=== PATIENT | female | born 1935 | race Caucasian/White ===

== ENCOUNTER 2019-04-21 14:59 | Inpatient (IN) | payer OTHER ==
--- NOTE | 2019-04-21 16:08 | PDOC ---
History of Present Illness - General Chief Complaint: Weakness Stated Complaint: WEAKNESS History Source: Patient, Family, Business And Financial Counsel Used Exam Limitations: Language Barrier (Telugu) - History of Present Illness Initial Comments: 04/21/19 16:08 Melany Light is an 83F with PMH CAD s/p CABG and IDDM presenting with weakness and PNA. Patient presents with daughter at bedside. Per daughter, was feeling weak for the last few days, went PMD a few days ago and was diagnosed with PNA vs CHF, sent home on amoxicillin, was started on Lasix for lower extremity edema. Patient lives alone at home. Today no one could contact her over the phone. Per patient, woke up at 7:30AM, but was then too weak to stand, slid down to floor. Daughter found her at noon unconscious on the floor. Patient denies any injury or head struck, denies chest pain/SOB/palpitations. Has not had a fever or chills, but has had a cough and diarrhea, poor PO intake , nausea, dizziness, has not been able to take 20U QHS insulin properly. No urinary symptoms. Past History - Past Medical History Allergies/Adverse Reactions: Allergies Allergy/AdvReac Type Severity Reaction Status Date / Time No Known Allergies Allergy Verified 04/21/19 15:25 COPD: No Diabetes: Yes HTN: Yes - Surgical History Cardiac Surgery: Yes (bypass) - Psycho Social/Smoking Cessation Hx Smoking History: Never smoked Hx Alcohol Use: No Review of Systems - Review of Systems Able to Perform ROS?: Yes Constitutional: Yes: Weakness. No: Chills, Fever HEENTM: No: Symptoms Reported Respiratory: Yes: Cough. No: Shortness of Breath, Wheezing Cardiac (ROS): Yes: Edema. No: Chest Pain, Palpitations, Syncope ABD/GI: Yes: Diarrhea, Nausea, Poor Appetite, Poor Fluid Intake. No: Constipated, Vomiting : No: Symptoms Reported Musculoskeletal: No: Symptoms Reported Integumentary: Yes: Symptoms Reported Neurological: Yes: Weakness, Unsteady Gait, Dizziness. No: Numbness, Paresthesia Endocrine: No: Symptoms Reported Hematologic/Lymphatic: No: Symptoms Reported All Other Systems: Reviewed and Negative *Physical Exam - Vital Signs Last Vital Signs Temp Pulse Resp BP Pulse Ox 97.7 F 111 H 18 142/93 88 L 04/21/19 15:00 04/21/19 15:00 04/21/19 15:00 04/21/19 15:00 04/21/19 15:00 - Physical Exam General Appearance: Yes: Nourished, Appropriately Dressed. No: Apparent Distress HEENT: positive: EOMI, MARCELLO, Normal Voice, Pharynx Normal (dry mouth), Hearing Grossly Normal. negative: Scleral Icterus (R), Scleral Icterus (L) Neck: positive: Trachea midline, Normal Thyroid, Supple. negative: Tender, Lymphadenopathy (R), Lymphadenopathy (L), Tender lateral, Tender midline Respiratory/Chest: positive: Lungs Clear, Normal Breath Sounds, Other (healed CABG scar, nontender). negative: Chest Tender, Respiratory Distress, Accessory Muscle Use, Crackles, Rales, Rhonchi, Stridor, Wheezing Cardiovascular: positive: Regular Rhythm, Regular Rate. negative: Murmur Gastrointestinal/Abdominal: positive: Normal Bowel Sounds, Soft. negative: Tender (complaining of generalized abd pain but nontender, negative Javier's), Organomegaly, Pulsatile Mass, Distended, Guarding, Hernia Musculoskeletal: positive: Normal Inspection. negative: CVA Tenderness, Vertebral Tenderness Extremity: positive: Normal Capillary Refill, Normal Inspection, Normal Range of Motion, Pelvis Stable, Pedal Edema (1+), Other (no sensory deficits, 5/5 motor strength, DP strong). negative: Tender, Calf Tenderness Integumentary: positive: Normal Color, Dry, Warm, Clammy Neurologic: positive: Fully Oriented, Alert, Normal Mood/Affect, Normal Response , Motor Strength 5/5. negative: Numbness, Sensory Deficit ED Treatment Course - LABORATORY CBC & Chemistry Diagram: 04/21/19 16:25 04/21/19 16:25 - ADDITIONAL ORDERS Additional order review: Laboratory Results 04/21/19 15:26 POC Glucometer 217 04/21/19 15:26 POC Glucometer 217 Medical Decision Making - Medical Decision Making 04/21/19 17:06 Patient is an 83F who lives alone and was found unconscious due to weakness, recently diagnosed with PNA, has history CABG and IDDM and has not been taking insulin. Afebrile, no crackles on exam, no chest pain reported. Concern for worsening PNA/sepsis, UTI, electrolyte abnormality, cardiac etiology of syncope/weakness. Sepsis labs ordered, including CMP/CBC/lactate/ coags/VBG/BNP, ordering CXR to evaluate for worsening PNA, ECG for evaluation of ACS, UA/UC for UTI eval. CT head considered but patient is mentating normally , speaking without issues, A/Ox3 with no reported head injury. 04/21/19 18:[address] Alves at [facility] (#[phone]), spoke to covering physician Dr. Chery. Electric Meter Tester is Dr. Sam at [facility]. History of posterior ID, BNP 22453 , last Echo Mar 2019 shows EF 26% with LV dilatation and PHTN. On Baseger 10U BID, metformin 500mg BID, atorvastatin 20mg, glipizide 10mg, Synthroid 88mcg, nifedipine ER 90mg. Diagnosed with CHF vs. PNA, sent home on amoxicillin empirically. Labs notable for: - WBC WNL, no evidence of systemic infection or PNA - Na/K WNL - BUN 19.8 - Cr 0.9 - BNP 87656, consistent with CHF, ordering 20mg IV Lasix for diuresis - trop 0.13 - VBG WNL ECG shows sinus tachycardia with LBBB, HR 108, QRS 168, QTC 554, no prior ECG for comparison, no chest pain at this time. CXR appears with bilateral pulmonary edema and effusions. Patient needs admission for CHF exacerbation and diuresis, is unable to stand or walk at this time, unsafe discharge home with home diuretics. No electrolyte abnormalities needing correction. Low suspicion for PNA at this time, no ABx given. 04/21/19 19:23 Spoke to admitting team, good for admission under Dr. Denney. Will add on CK for eval prolonged down time and CT head for syncope. Discharge - Discharge Information Problems reviewed: Yes Clinical Impression/Diagnosis: CHF exacerbation Qualifiers: Heart failure type: unspecified Qualified Code(s): I50.9 - Heart failure, unspecified Condition: Stable - Admission Yes - Follow up/Referral - Patient Discharge Instructions - Post Discharge Activity
[2019-04-21] MEDS ORDERED: SODIUM CHLORIDE 1,660 ML IV ONE (16:35)
[2019-04-21 16:56] LABS: BASO % 0.8 % (0-2.0); HEMATOCRIT 34.3 % (32.4-45.2); LYMPH % 10.1 % (8-40); MCH 25.3 pg (25.7-33.7); MCHC 32.1 g/dl (32.0-36.0); MEAN CELL VOLUME 78.9 fl (80-96); MEAN PLT VOLUME 8.9 fl (7.5-11.1); MONO % 5.2 % (3.8-10.2); NEUT % 83.9 % (42.8-82.8); PLATELET COUNT 222 K/MM3 (134-434); RBC 4.35 M/mm3 (3.60-5.2); RDW 15.8 % (11.6-15.6); WHITE BLOOD COUNT 7.8 K/mm3 (4.0-10.0)
[2019-04-21 17:07] LABS: VENOUS PC02 45.8 mmHg (38-52); VENOUS PH 7.38 (7.31-7.41)
[2019-04-21 17:08] LABS: VENOUS PO2 < 49 mmHg (28-48)
[2019-04-21 17:13] LABS: INR 1.09 (0.83-1.09); PROTHROMBIN TIME (PATIENT) 12.9 SEC (9.7-13.0)
[2019-04-21 17:15] LABS: ACTIVATED PTT 32.5 SECONDS (25.2-36.5)
[2019-04-21 17:31] LABS: N-TERMINAL BNP 18966.5 pg/ml (5-450)
--- NOTE | 2019-04-21 17:37 | PDOC ---
Documentation entered by Adrien Bower SCRIBE, acting as scribe for Tess Bautista MD. Tess Bautista MD: This documentation has been prepared by the johnibeSathish Daniel, SCRIBE, under my direction and personally reviewed by me in its entirety. I confirm that the documentation accurately reflects all work, treatment, procedures, and medical decision making performed by me. Attending Attestation - Resident Resident Name: Monroe Jones - ED Attending Attestation I have performed the following: I have examined & evaluated the patient, The case was reviewed & discussed with the resident, I agree w/resident's findings & plan, Exceptions are as noted - HPI HPI: 04/21/19 16:42 The patient is an 83 year old female with a past medical history of CAD s/p CABG and diabetes here today for evaluation of weakness. The patient reports that she felt weak this morning and slid out of bed to the floor and was unable to get up. She was found by her daughter. Patient also reports that she was diagnosed with pneumonia on on monday (04/14/2019) at an urgent care and was started on amoxicillin. Allergies: NKA PCP: Paul Alves - Physicial Exam PE: 04/21/19 17:27 alert 83 yo female with c/o thirst,positional dizziness, days of diarrhea and she slid onto the floor at home and was found down on the floor by family today 04/21/19 17:33 head ncat eyes joshua eomi Dry mucus membranes neck supple lungs no wheezing, no crackles cvs tachycardia abd no rebound, no guarding skin dry Extremities FROM, no deformities, no appreciable edema neuro alert,conversant,moving all extremities 04/21/19 18:27 - Medical Decision Making 04/21/19 17:35 83 yo female complaining of dizziness and thirst differential includes syncope vs vasovagel ,dehydration,ACS,TIA,gastroenteritis plan ekg,IVF,ct scan head,cbc,comp,trop,UA,UC 04/21/19 18:28 pt has no focal neuro deficits and can recall the incident of her sliding of the bed on to floor and then not able to get herself off the floor, motor strength 5/5 b/l 04/21/19 21:[address] Chery who was covering for Dr. Paul Alves [phone] and the patient's medications are Glargine 10 units in the morning, 35 units in the afternoon Metformin 500 twice daily Atorvastatin 20 mill milligrams at night glipizide 10 mg daily Synthroid 88 mEq Nifedipine 90 mg Lasix 20 mg daily 04/21/19 21:07 Her medical history significant for insulin-dependent diabetes, congestive heart failure Spoke with Dr. Chery she had a stress test and echo done March 2019 Her ejection fraction was only 26%, pulmonary hypertension, mild to moderate mitral regurg, tricuspid regurg, severely dilated LV and RV Her steam clean machine operator is Dr. Jose E Sam 04/21/19 21:10 04/21/19 21:10 Troponin equal to 0.13 and will be trended BNP is about 19,000. Her last known BNP was in the last month and it was 26, 670 according to her PCP admitted tp telemetry
[2019-04-21 17:49] LABS: ALBUMIN 3.5 g/dl (3.4-5.0); BILIRUBIN,TOTAL 0.7 mg/dL (0.2-1); BLOOD UREA NITROGEN 19.8 mg/dL (7-18); CALCIUM 8.8 mg/dL (8.5-10.1); CREATININE 0.9 mg/dL (0.55-1.3); POTASSIUM 3.5 mmol/L (3.5-5.1); TOT PROT 6.4 g/dl (6.4-8.2)
[2019-04-21] MEDS ORDERED: FUROSEMIDE 40 MG/4 ML INJECTABLE VIAL IVPUSH ONE (18:26)
[2019-04-21] MEDS ORDERED: FUROSEMIDE 40 MG/4 ML INJECTABLE VIAL ONE (18:50)
--- NOTE | 2019-04-21 19:43 | PN ---
Teaching Attending Note Name of Resident: Shahbaz Kign ATTENDING PHYSICIAN STATEMENT I saw and evaluated the patient. I reviewed the resident's note and discussed the case with the resident. I agree with the resident's findings and plan as documented. SUBJECTIVE: Patient is an 83 year old woman with a PMH of HFrEF, CAD s/p CABG and Insulin- treated DM presenting with weakness. Per daughter, she was feeling weak for the last few days, went PMD a few days ago and was diagnosed with PNA vs CHF, sent home on amoxicillin, was started on Lasix for lower extremity edema. Patient lives alone at home. Today no one could contact her over the phone. Per patient , woke up at 7:30AM, but was then too weak to stand and slid down to floor. Daughter found her at noon unconscious on the floor. Patient denies any injury or head struck, denies chest pain, SOB or palpitations. Has not had a fever or chills, but has had a cough and diarrhea, poor PO intake, nausea and dizziness. Has not been able to take 20U QHS insulin properly. No urinary symptoms. Denies alcohol, tobacco or illicit drug use. No sick contacts or recent travels. OBJECTIVE: Alert Vital Signs Period Temp Pulse Resp BP Sys/Patel Pulse Ox Last 24 Hr 97.7 F 107-111 18-18 127-142/87-93 88-98 HEENT: No Jaundice, eye redness or discharge, PERRLA, EOMI. Normocephalic, atraumatic. External ears are normal and hearing is grossly intact. No nasal discharge. Neck: Supple, nontender. No palpable adenopathy or thyromegaly. No JVD Chest: Good effort. Bibasilar Clear to auscultation and percussion. Heart: Tachycardia. No S3, rub or murmur Abdomen: Not distended, soft, nontender and no HSM. No rebound or guarding. Normal bowel sounds. Ext: Peripheral pulses intact. Leg edema. Skin: Warm and dry. No petechiae, rash or ecchymosis. Neuro: Alert. Oriented x3. CN 2-12 grossly intact. Sensation grossly intact in all four extremities and DTR are symmetric. Psych: Appropriate mood and affect. Good insight. Current Medications Generic Name Dose Route Start Last Admin Trade Name Freq PRN Reason Stop Dose Admin Enoxaparin Sodium 40 mg 04/22/19 10:00 Lovenox - SQ DAILY ANTHONY Insulin Aspart 1 vial 04/21/19 22:00 Novolog Vial Sliding Scale - SQ ACHS [facility] Protocol Abnormal Lab Results 04/21/19 04/21/19 04/21/19 16:25 16:25 16:25 MCV 78.9 L MCH 25.3 L RDW 15.8 H Neutrophils % 83.9 H POC VBG pO2 VBG O2 Sat (James) Anion Gap 7 L BUN 19.8 H Random Glucose 221 H Creatine Kinase 198 H Troponin I 0.13 H B-Natriuretic Peptide 07465.5 H 04/21/19 16:25 MCV MCH RDW Neutrophils % POC VBG pO2 < 49 H VBG O2 Sat (James) 38.7 L Anion Gap BUN Random Glucose Creatine Kinase Troponin I B-Natriuretic Peptide ASSESSMENT AND PLAN: 1. CHF exacerbation/?Syncope - CXR shows cardiomegaly, pulmonary vascular congestion and possible left pleural effusion. ECHO from 03/2019 showed LVEF of 26% and LV dilatation. Will get a chest CT to rule out pneumonia and ?quantify pleural effusion. Head CT to investigate possible syncope. Will give IV lasix, restrict dietary salt intake and get daily weight. EKG shows sinus tachycardia at 108/minute, LBBB and prolonged QTc. Elevated troponin may signal demand ischemia, but will admit to telemetry to rule out ACS. Will trend CPK, get Flu swab and Respiratory Virus panel. Will continue comprehensive care for all of patients comorbid conditions. 2. Hypoalbuminemia - Possibly due to combined effects of proteinuria, malnutrition and inflammation associated with comorbid chronic conditions. Will ensure adequate dietary protein intake and also consult cargo service agent. UA pending. 3. Uncontrolled DM For now, we will hold the home diabetes drugs and implement sliding scale insulin regimen. Provide comprehensive diabetes care with patient teaching and counseling about the importance of adherence to prescribed diabetes regimen, euglycemia, eye care and foot care. 4. DVT prophylaxis - Lovenox 40 mg SQ q 24 hours. 5. Advance directives - Full code
[2019-04-21 20:58] LABS: EPI CELLS 6.8 /HPF (0-5/HPF); HYALINE CASTS 9 /lpf (0-8); URINE APPEARANCE CLEAR; URINE BACTERIA 3.8 /hpf (NEGATIVE); URINE BILIRUBIN NEGATIVE (NEGATIVE); URINE COLOR YELLOW; URINE GLUCOSE (UA) NEGATIVE (NEGATIVE); URINE KETONE TRACE (NEGATIVE); URINE LEUK ESTERASE TRACE (NEGATIVE); URINE NITRITE NEGATIVE (NEGATIVE); URINE PROTEIN 2+ (NEGATIVE); URINE RBC 5 /hpf (0-4); URINE UROBILINOGEN 0.2 mg/dL (0.2-1.0); URINE WBC 4 /hpf (0-5)
--- NOTE | 2019-04-21 21:08 | HP ---
CHIEF COMPLAINT: weakness, difficulty breathing PCP: Dr. Alves ([facility]) Cardio: Dr. Sam ([facility]) HISTORY OF PRESENT ILLNESS: Melany Light is an 83 year old female with a past medical history of CAD (s/ p CABG), HTN, DM, osteoporosis who presents to the ED with respiratory difficulty and weakness. Patient was at her PCP one week prior and diagnosed with PNA outpatient and started on amoxicillin 500mg bid that she has been taking since. The patient noted that she had been having some episodes of diarrhea and non-bloody non-bilious vomiting since starting the antibiotics as well as having some generalized weakness. Over the last 2-3 days the patient noted that she had been having poor appetite, decreased fluid intake, increased leg swelling, orthopnea, increased lower extremity weakness, lightheadedness, and some abdominal pain with nausea and vomiting, and continued loose stools. The patient lives alone and has an aide for 4 hours per day during the week. She is ambulatory at baseline. This morning, the patient noted that she woke up and felt very weak and was unable to stand up so she slid to the floor. She denies any prodromal symptoms of chest pain, diaphoresis, palpitations, lightheadedness prior to the episode and denied a head hit but does not recall many events after. The daughter, who was at bedside during this interview, noted that the patient was unable to be reached by phone and so she came to the house where she found the patient unconscious next to the bed. Daughter stated that it took several minutes for the patient to wake up and in the meantime EMS was contacted. During the interview, the patient notes that she feels better but continues to have some difficulty breathing, orthopnea, lightheadedness, lower extremity weakness, some abdominal pain, mild nausea, continued diarrhea. Denies chest pain, palpitations, fevers, chills, diaphoresis, dysuria, hematuria, hemtochezia , focal weakness, numbness, tingling, visual changes, difficulty swallowing. ER course was notable for: (1) HR 107-111 (2) BNP 05788.5, troponins 0.13 (3) CXR with blunted angles, and questionable infiltratate (4) EKG with sinus tachycardia, LBBB, QTc 554, no prior EKG for comparison (5) Head CT No acute intracranial hemorrhage mass effect or midline shift. The ventricles sulci and basilar cisterns are mildly prominent consistent with mild central volume loss. Mild nonspecific periventricular predominant low density throughout the deep white matter is most likely due to mild small vessel ischemic white matter disease. 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 Cannot exclude an acute infarct. Calcified arteriosclerosis of the cavernous carotids and bilateral vertebral arteries noted. 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 Allergies No Known Allergies Allergy (Verified 04/21/19 15:25) HOME MEDICATIONS: REVIEW OF SYSTEMS CONSTITUTIONAL: generalized weakness, loss of appetite Absent: fever, chills, diaphoresis, weight change HEENT: Absent: rhinorrhea, nasal congestion, throat pain, throat swelling, difficulty swallowing, visual changes CARDIOVASCULAR: lightheadedness, peripheral edema Absent: chest pain, syncope, palpitations, irregular heart rate, RESPIRATORY: shortness of breath, orthopnea Absent: cough, wheezing, stridor, hemoptysis GASTROINTESTINAL: abdominal pain/swelling, nausea, vomiting, diarrhea Absent: abdominal distension, melena, hematochezia GENITOURINARY: Absent: dysuria, frequency, urgency, hesitancy, hematuria, flank pain, genital pain MUSCULOSKELETAL: back pain Absent: myalgia, arthralgia, joint swelling, neck pain SKIN: Absent: rash, itching, pallor HEMATOLOGIC/IMMUNOLOGIC: Absent: easy bleeding, easy bruising, lymphadenopathy, frequent infections ENDOCRINE: Absent: unexplained weight gain, unexplained weight loss, heat intolerance, cold intolerance NEUROLOGIC: unsteady gait Absent: headache, focal weakness or paresthesias, dizziness, seizure, mental status changes, bladder or bowel incontinence PSYCHIATRIC: Absent: anxiety, depression, suicidal or homicidal ideation, hallucinations. PHYSICAL EXAMINATION Vital Signs - 24 hr 04/21/19 04/21/19 15:00 18:53 Temperature 97.7 F Pulse Rate 111 H Pulse Rate [ 107 H Apical] Respiratory 18 18 Rate Blood Pressure 142/93 Blood Pressure 127/87 [Left] O2 Sat by Pulse 88 L 98 Oximetry (%) GENERAL: Awake, alert, and fully oriented, in no acute distress. Sami speaking. HEAD: Normal with no signs of trauma. EYES: Pupils equal, round and reactive to light, extraocular movements intact, sclera anicteric, conjunctiva clear. EARS, NOSE, THROAT: Oropharynx clear without exudates. Moist mucous membranes. NECK: Normal range of motion, supple without lymphadenopathy, JVD. No hepatojugular reflex. LUNGS: Bibasilar crackles. Dullness on the R side. HEART: Tachycardic rate and normal rhythm, normal S1 and S2 without murmur, rub. ABDOMEN: Soft, tender to palpation on RUQ, moderately distended, normoactive bowel sounds, no guarding, no rebound, no masses. MUSCULOSKELETAL: Normal range of motion at all joints. No bony deformities or tenderness. No CVA tenderness. UPPER EXTREMITIES: 2+ pulses, warm, well-perfused. No cyanosis. No clubbing. No peripheral edema. LOWER EXTREMITIES: 2+ pulses, warm, well-perfused. No calf tenderness. 1+ peripheral edema up to the knees. NEUROLOGICAL: Cranial nerves II-XII intact. 4/5 muscle strength bilaterally on the lower extremities. 5/5 muscle strength elsewhere. No sensory deficit to gross touch. PSYCHIATRIC: Cooperative. Good eye contact. Appropriate mood and affect. SKIN: Warm, dry, normal turgor, no rashes or lesions noted, normal capillary refill. Laboratory Results - last 24 hr 04/21/19 04/21/19 04/21/19 15:26 16:25 16:25 WBC 7.8 RBC 4.35 Hgb 11.0 Hct 34.3 MCV 78.9 L MCH 25.3 L MCHC 32.1 RDW 15.8 H Plt Count 222 MPV 8.9 Absolute Neuts (auto) 6.6 Neutrophils % 83.9 H Lymphocytes % 10.1 Monocytes % 5.2 Eosinophils % 0.0 Basophils % 0.8 Nucleated RBC % 0 VBG pH POC VBG pCO2 POC VBG pO2 VBG HCO3 VBG O2 Sat (James) VBG Base Excess Sodium Potassium Chloride Carbon Dioxide Anion Gap BUN Creatinine Est GFR (CKD-EPI)AfAm Est GFR (CKD-EPI)NonAf POC Glucometer 217 Random Glucose Lactic Acid Calcium Total Bilirubin AST ALT Alkaline Phosphatase Creatine Kinase Creatine Kinase Index CK-MB (CK-2) Troponin I 0.13 H B-Natriuretic Peptide 72100.5 H Total Protein Albumin 04/21/19 04/21/19 04/21/19 16:25 16:25 16:25 WBC RBC Hgb Hct MCV MCH MCHC RDW Plt Count MPV Absolute Neuts (auto) Neutrophils % Lymphocytes % Monocytes % Eosinophils % Basophils % Nucleated RBC % VBG pH 7.38 POC VBG pCO2 45.8 POC VBG pO2 < 49 H VBG HCO3 26.2 VBG O2 Sat (James) 38.7 L VBG Base Excess 1.3 Sodium 137 Potassium 3.5 Chloride 103 Carbon Dioxide 27 Anion Gap 7 L BUN 19.8 H Creatinine 0.9 Est GFR (CKD-EPI)AfAm 69.01 Est GFR (CKD-EPI)NonAf 59.55 POC Glucometer Random Glucose 221 H Lactic Acid 1.6 Calcium 8.8 Total Bilirubin 0.7 AST 27 ALT 19 Alkaline Phosphatase 87 Creatine Kinase 198 H Creatine Kinase Index 4.5 CK-MB (CK-2) 9.0 H Troponin I B-Natriuretic Peptide Total Protein 6.4 Albumin 3.5 EKG--> Sinus tachycardia, LBBB, QTc 554 ASSESSMENT/PLAN: Melany Light is an 83 year old female with a past medical history of CAD (s/ p CABG), HTN, DM, osteoporosis admitted for CHF decompensation likely in the setting of recent PNA diagnosis. CHF Decompensation - elevated BNP and evidence of effusion on CXR with recent PNA diagnosis - CT chest prelim read noting moderate R pleural effusion, mild to moderate L sided pleural effusion with compressive atelectasis and/or PNA - given Lasix 20mg IV in ED - start Lasix 40mg IV daily - daily weights - I+Os - cardiac monitoring - O2 as needed - echo ordered, previous echo as per ED noted an EF of 26% with LV dilation and pulmonary HTN, also had stress test done through cardio with unknown results, will need to obtain records in AM - fluid and salt restriction - Flu negative, Resp panel pending - Physical therapy Troponemia - likely in setting of CHF decompensation - EKG with LBBB, Sgarbossa's criteria 2 points, low specificity - has extensive cardiac history - trops 0.13-->0.27 - cardiology consulted - repeat EKG Head CT with noted chronic infarcts cannot exclude acute infarct - Head CT as above - aspirin 81mg - carotid doppler - echo - neurochecks - speech and swallow - can consider MRI, patient with no focal deficits ?PNA - CT chest prelim read noting moderate R pleural effusion, mild to moderate L sided pleural effusion with compressive atelectasis and/or PNA - ceftriaxone and doxycycline started - avoid QT prolonging agents Period of Unconsciousness - likely in setting of CHF decompensation and weakness - CT head ordered - CPK mildly elevated, continued to trend DM - BGM - ISS - A1c - will need reconcilation as family states patient on basal nighttime insulin Diarrhea - ordered stool studies due to recent antibiotic use and continued diarrhea episodes ?Hypothyoridism - as per ED note patient on synthroid 88 mcg however family uncertain of diagnosis or medication - will require medication reconciliation in the morning - TSH ordered DVT PPx - Lovenox 40 mg daily FEN - no standing fluids, caution with fluids with poor EF history - continued to monitor electrolytes and replete as necessary - diabetic/sodium diet, fluid and salt restriction Dispo - admit to telemetry - needs medication reconciliation, uses [facility], but picked up amoxicillin once at [facility] Family Medical History Family Hx Coronary Artery Disease: Father (MA), Sister (MA in 40s) Visit type - Emergency Visit Emergency Visit: Yes ED Registration Date: 04/21/19 Care time: The patient presented to the Emergency Department on the above date and was hospitalized for further evaluation of their emergent condition. - New Patient This patient is new to me today: Yes Date on this admission: 04/22/19 - Critical Care Critical Care patient: No
[2019-04-21] MEDS: INSULIN SLIDING SCALE (NOVOLOG) 1 VIAL SQ SCH (23:39)
[2019-04-22 07:02] LABS: BASO % 0.7 % (0-2.0); EOS % 1.7 % (0-4.5); HEMATOCRIT 33.5 % (32.4-45.2); HEMOGLOBIN 10.7 GM/dL (10.7-15.3); LYMPH % 17.4 % (8-40); MCH 25.4 pg (25.7-33.7); MEAN CELL VOLUME 79.4 fl (80-96); MEAN PLT VOLUME 8.9 fl (7.5-11.1); MONO % 9.1 % (3.8-10.2); NEUT % 71.1 % (42.8-82.8); PLATELET COUNT 213 K/MM3 (134-434); RBC 4.23 M/mm3 (3.60-5.2); RDW 15.5 % (11.6-15.6); WHITE BLOOD COUNT 7.5 K/mm3 (4.0-10.0)
[2019-04-22 07:19] LABS: ALBUMIN 3.3 g/dl (3.4-5.0); BILIRUBIN,TOTAL 0.7 mg/dL (0.2-1); BLOOD UREA NITROGEN 17.4 mg/dL (7-18); CALCIUM 8.6 mg/dL (8.5-10.1); CREATININE 0.9 mg/dL (0.55-1.3); MAGNESIUM 1.7 mg/dL (1.8-2.4); PHOSPHOROUS 3.6 mg/dL (2.5-4.9); POTASSIUM 3.2 mmol/L (3.5-5.1); TOT PROT 6.4 g/dl (6.4-8.2)
[2019-04-22] MEDS ORDERED: ENOXAPARIN NA (PORCINE) 40 MG/0.4 ML DISP.SYRIN SQ ONE (09:33)
[2019-04-22] MEDS ORDERED: CEFTRIAXONE 1 GM/50 ML BAG ONE (09:34)
[2019-04-22] MEDS ORDERED: ASPIRIN 81 MG CHEWABLE TABLETS ONE (09:34)
--- NOTE | 2019-04-22 09:53 | EKG ---
Test Reason : Blood Pressure : / mmHG Vent. Rate : 089 BPM Atrial Rate : 089 BPM P-R Int : 180 ms QRS Dur : 164 ms QT Int : 430 ms P-R-T Axes : 050 016 -74 degrees QTc Int : 523 ms NORMAL SINUS RHYTHM LEFT BUNDLE BRANCH BLOCK ABNORMAL ECG WHEN COMPARED WITH ECG OF 21-APR-2019 17:42, NO SIGNIFICANT CHANGE WAS FOUND Confirmed by JESICA RAYMUNDO MD ([id number]) on 04/22/2019 9:53:33 AM Referred By: ARTHUR CAI DR Confirmed By:JESICA RAYMUNDO MD
[2019-04-22] MEDS: FUROSEMIDE 40 MG/4 ML INJECTABLE VIAL IVPUSH SCH (09:54)
[2019-04-22] MEDS: ASPIRIN 81 MG CHEWABLE TABLETS PO SCH (09:54)
[2019-04-22] MEDS: INSULIN SLIDING SCALE (NOVOLOG) 1 VIAL SQ SCH ×4 (09:54→22:20)
[2019-04-22] MEDS: ENOXAPARIN NA (PORCINE) 40 MG/0.4 ML DISP.SYRIN SQ SCH (09:55)
[2019-04-22] MEDS ORDERED: DOXYCYCLINE INJECTION 100 MG in DEXTROSE 5%-WATER 100 ML IVPB SCH (10:00)
[2019-04-22] MEDS ORDERED: CEFTRIAXONE 1 GM in DEXTROSE 5%-WATER - 50 ML IVPB SCH (10:00)
--- NOTE | 2019-04-22 10:00 | EKG ---
Test Reason : Blood Pressure : / mmHG Vent. Rate : 110 BPM Atrial Rate : 110 BPM P-R Int : 160 ms QRS Dur : 162 ms QT Int : 384 ms P-R-T Axes : 056 020 259 degrees QTc Int : 519 ms SINUS TACHYCARDIA WITH OCCASIONAL PREMATURE VENTRICULAR COMPLEXES LEFT BUNDLE BRANCH BLOCK ABNORMAL ECG WHEN COMPARED WITH ECG OF 16-MAR-2006 07:33, PREMATURE VENTRICULAR COMPLEXES ARE NOW PRESENT VENT. RATE HAS INCREASED BY 50 BPM LEFT BUNDLE BRANCH BLOCK IS NOW PRESENT Confirmed by JESICA RAYMUNDO MD ([id number]) on 04/22/2019 10:00:23 AM Referred By: Confirmed By:JESICA RAYMUNDO MD
[2019-04-22] MEDS ORDERED: MAGNESIUM SULF 50% (8.12 MEQ/2 ML-1 GM VIAL) IVPB ONE (11:04)
--- NOTE | 2019-04-22 11:12 | CON.CARD ---
Consult Consult Specialty:: Cardiology - History of Present Illness History of Present Illness: The patient is an 83 year old female with a past medical history of CAD s/p CABG and diabetes here today for evaluation of weakness. The patient reports that she felt weak this morning and slid out of bed to the floor and was unable to get up. She was found by her daughter. Patient also reports that she was diagnosed with pneumonia on on monday (04/14/2019) at an urgent care and was started on amoxicillin. Allergies: NKA PCP: Paul Alves - History Source History Provided By: Patient, Medical Record - Alcohol/Substance Use Hx Alcohol Use: No - Smoking History Smoking history: Never smoked Home Medications - Allergies Allergies/Adverse Reactions: Allergies Allergy/AdvReac Type Severity Reaction Status Date / Time No Known Allergies Allergy Verified 04/21/19 15:25 Review of Systems - Review of Systems Constitutional: reports: No Symptoms Eyes: reports: No Symptoms HENT: reports: No Symptoms Neck: reports: No Symptoms Cardiovascular: reports: No Symptoms Respiratory: reports: No Symptoms Gastrointestinal: reports: No Symptoms Genitourinary: reports: No Symptoms Breasts: reports: No Symptoms Reported Musculoskeletal: reports: No Symptoms Integumentary: reports: No Symptoms Neurological: reports: No Symptoms Endocrine: reports: No Symptoms Hematology/Lymphatic: reports: No Symptoms Psychiatric: reports: No Symptoms Vital Signs: Vital Signs Temperature 97.7 F 04/21/19 15:00 Pulse Rate 69 04/22/19 07:46 Respiratory Rate 18 04/22/19 07:46 Blood Pressure 143/71 04/22/19 07:46 O2 Sat by Pulse Oximetry (%) 96 04/22/19 07:46 Constitutional: Yes: Well Nourished, No Distress, Calm Eyes: Yes: WNL, Conjunctiva Clear, EOM Intact HENT: Yes: WNL, Atraumatic, Normocephalic Neck: Yes: WNL, Supple, Trachea Midline Respiratory: Yes: WNL, Regular, CTA Bilaterally Gastrointestinal: Yes: WNL, Normal Bowel Sounds Renal/: Yes: WNL Cardiovascular: Yes: WNL, Regular Rate and Rhythm Musculoskeletal: Yes: WNL Extremities: Yes: WNL Integumentary: Yes: WNL Neurological: Yes: WNL, Alert, Oriented ...Motor Strength: WNL Psychiatric: Yes: WNL, Alert, Oriented - Other Data Labs, Other Data: CBC, BMP 04/22/19 06:00 04/22/19 06:00 INR, PTT INR 1.09 (0.83-1.09) 04/21/19 19:45 Troponin, BNP 04/21/19 04/21/19 04/22/19 16:25 23:15 06:00 Troponin I 0.13 H 0.27 H 0.31 H B-Natriuretic Peptide 75073.5 H Troponin, BNP 04/21/19 04/21/19 04/22/19 16:25 23:15 06:00 Troponin I 0.13 H 0.27 H 0.31 H B-Natriuretic Peptide 51816.5 H Imaging - Results Chest X-ray: Image Reviewed (s/p OHS no I/E) EKG: Image Reviewed (sr LBBB) Problem List - Problems (1) CHF exacerbation Code(s): I50.9 - HEART FAILURE, UNSPECIFIED Qualifiers: Heart failure type: unspecified Qualified Code(s): I50.9 - Heart failure, unspecified Assessment/Plan 83 year old female with a past medical history of CAD s/p CABG and diabetes here today for evaluation of weakness. EKG LBBB elevated , BNP, hypolalemia and hypothyroidism. Plan; IV Lasix ECHO Will benefit from BB and most likely HELLEN I (depending on ECHO results) DVT plx endocrine consult Further w/u will depend on ECHO results and hospital course
[2019-04-22] MEDS ORDERED: MAGNESIUM SULF 50% (8.12 MEQ/2 ML-1 GM VIAL) ONE (12:08)
--- NOTE | 2019-04-23 00:17 | PN ---
Physical Exam: 83 F h/o CAD s/p CABG, HFrEF, HTN, HLD, T2DM admitted for evaluation of weakness. The patient reports that she felt weak this morning and slid out of bed to the floor and was unable to get up. She was found by her daughter. Patient also reports that she was diagnosed with pneumonia last Monday (2019) at an urgent care and was started on amoxicillin, but weakness worsened then family brought her to ER. PE VSS GA AAox3, sitting up in stretcher, speaks in full sentences HEENT NC/AT, EOMI, MMM, neck supple Chest b/l crackles up to mid-lung, no wheezing CVS S1, S2+, RRR, RADHA+ Ext No LE edema, no calf tenderness Vital Signs - 24 hr 04/22/19 04/22/19 04/22/19 07:46 17:49 20:49 Temperature 97.7 F Pulse Rate [ 69 105 H 106 H Right Radial] Respiratory 18 20 Rate Blood Pressure 143/71 139/88 135/78 [Right Arm] O2 Sat by Pulse 96 98 99 Oximetry (%) 04/23/19 00:03 Temperature Pulse Rate [ Right Radial] Respiratory Rate Blood Pressure [Right Arm] O2 Sat by Pulse 99 Oximetry (%) Microbiology 04/21/19 16:25 Blood - Peripheral Venous Blood Culture - Preliminary NO GROWTH OBTAINED AFTER 24 HOURS, INCUBATION TO CONTINUE FOR 4 DAYS. 04/21/19 16:25 Blood - Peripheral Venous Blood Culture - Preliminary NO GROWTH OBTAINED AFTER 24 HOURS, INCUBATION TO CONTINUE FOR 4 DAYS. Laboratory Results - last 24 hr 04/21/19 04/22/19 04/22/19 23:15 06:00 06:00 WBC 7.5 RBC 4.23 Hgb 10.7 Hct 33.5 MCV 79.4 L MCH 25.4 L MCHC 32.0 RDW 15.5 Plt Count 213 MPV 8.9 Absolute Neuts (auto) 5.3 Neutrophils % 71.1 Lymphocytes % 17.4 D Monocytes % 9.1 Eosinophils % 1.7 D Basophils % 0.7 Nucleated RBC % 0 Sodium 142 Potassium 3.2 L Chloride 104 Carbon Dioxide 29 Anion Gap 8 BUN 17.4 Creatinine 0.9 Est GFR (CKD-EPI)AfAm 69.01 Est GFR (CKD-EPI)NonAf 59.55 POC Glucometer Random Glucose 110 H Hemoglobin A1c % Calcium 8.6 Phosphorus 3.6 Magnesium 1.7 L Total Bilirubin 0.7 AST 23 ALT 20 Alkaline Phosphatase 85 Creatine Kinase 180 167 Creatine Kinase Index 4.7 4.6 CK-MB (CK-2) 8.5 H 7.8 H Troponin I 0.27 H 0.31 H Total Protein 6.4 Albumin 3.3 L TSH 14.30 H Free T4 1.12 04/22/19 04/22/19 04/22/19 06:00 11:43 16:44 WBC RBC Hgb Hct MCV MCH MCHC RDW Plt Count MPV Absolute Neuts (auto) Neutrophils % Lymphocytes % Monocytes % Eosinophils % Basophils % Nucleated RBC % Sodium Potassium Chloride Carbon Dioxide Anion Gap BUN Creatinine Est GFR (CKD-EPI)AfAm Est GFR (CKD-EPI)NonAf POC Glucometer 184 162 Random Glucose Hemoglobin A1c % 8.1 H Calcium Phosphorus Magnesium Total Bilirubin AST ALT Alkaline Phosphatase Creatine Kinase Creatine Kinase Index CK-MB (CK-2) Troponin I Total Protein Albumin TSH Free T4 04/22/19 04/22/19 20:35 22:18 WBC RBC Hgb Hct MCV MCH MCHC RDW Plt Count MPV Absolute Neuts (auto) Neutrophils % Lymphocytes % Monocytes % Eosinophils % Basophils % Nucleated RBC % Sodium Potassium Chloride Carbon Dioxide Anion Gap BUN Creatinine Est GFR (CKD-EPI)AfAm Est GFR (CKD-EPI)NonAf POC Glucometer 193 Random Glucose Hemoglobin A1c % Calcium Phosphorus Magnesium Total Bilirubin AST ALT Alkaline Phosphatase Creatine Kinase Creatine Kinase Index CK-MB (CK-2) Troponin I 0.18 H Total Protein Albumin TSH Free T4 Home Medications Medication Instructions Recorded Aspirin [Aspirin EC] 325 mg PO DAILY 04/22/19 Atorvastatin Ca [Lipitor] 40 mg PO HS 04/22/19 Insulin Glargine,Hum.rec.anlog 20 unit SQ DAILY 04/22/19 [Basaglar Kwikpen U-100] Levothyroxine Sodium [Synthroid] 88 mcg PO DAILY 04/22/19 Metformin HCl [Glucophage] 1,000 mg PO BID 04/22/19 Valsartan 320 mg PO DAILY 04/22/19 Current Medications Generic Name Dose Route Start Last Admin Trade Name Freq PRN Reason Stop Dose Admin Aspirin 81 mg 04/22/19 10:00 04/22/19 09:54 Asa - PO 81 mg DAILY ANTHONY Administration Enoxaparin Sodium 40 mg 04/22/19 10:00 04/22/19 09:55 Lovenox - SQ 40 mg DAILY ANTHONY Administration Furosemide 40 mg 04/22/19 10:00 04/22/19 09:54 Lasix Injection - IVPUSH 40 mg DAILY ANTHONY Administration Insulin Aspart 1 vial 04/21/19 22:00 04/22/19 22:20 Novolog Vial Sliding Scale - SQ 2 unit ACHS ANTHONY Administration Protocol Potassium Chloride 40 meq 04/23/19 10:00 K-Dur - PO 04/23/19 10:01 ONCE ONE A/P: 83 F h/o HFrEF, CAD s/p CABG, HTN, Diabetes presents with near syncopal fall and weakness. HFrEF In acute exacerbation, compensated heart failure IV Lasix, obtain Echo, carotids, brain imaging Cardiology consult CAD s/p CABG Resume statin BB as per Echo and cardio recommendations IV Lasix for HF NA/fluid restriction, replete lytes Will eventually need ICD considering low EF but this is a conversation family should have with primary assistant to the president T2DM uncontrolled supplement ISS, basal insulin as needed diet and activity education DVT ppx: Heparin SC Daily chem, fluid restriction, Na/DM diet Visit type - Emergency Visit Emergency Visit: Yes ED Registration Date: 04/21/19 Care time: The patient presented to the Emergency Department on the above date and was hospitalized for further evaluation of their emergent condition. - New Patient This patient is new to me today: Yes Date on this admission: 04/23/19 - Critical Care Critical Care patient: No - Discharge Referral Referred to [facility] Med P.C.: No
[2019-04-23 08:09] LABS: BASO % 0.6 % (0-2.0); EOS % 0.1 % (0-4.5); HEMATOCRIT 35.5 % (32.4-45.2); HEMOGLOBIN 11.2 GM/dL (10.7-15.3); LYMPH % 5.5 % (8-40); MCH 25.3 pg (25.7-33.7); MCHC 31.5 g/dl (32.0-36.0); MEAN CELL VOLUME 80.4 fl (80-96); MONO % 4.3 % (3.8-10.2); NEUT % 89.5 % (42.8-82.8); PLATELET COUNT 237 K/MM3 (134-434); RBC 4.41 M/mm3 (3.60-5.2); RDW 15.9 % (11.6-15.6); WHITE BLOOD COUNT 9.8 K/mm3 (4.0-10.0)
[2019-04-23] MEDS: INSULIN SLIDING SCALE (NOVOLOG) 1 VIAL SQ SCH ×4 (08:10→21:43)
[2019-04-23 08:31] LABS: BLOOD UREA NITROGEN 23.9 mg/dL (7-18); CALCIUM 9.3 mg/dL (8.5-10.1); CREATININE 1.4 mg/dL (0.55-1.3); POTASSIUM 3.5 mmol/L (3.5-5.1)
[2019-04-23] MEDS ORDERED: POTASSIUM CHLORIDE ORAL LIQUID 20 MEQ/15 ML PO ONE (09:30)
[2019-04-23] MEDS ORDERED: POTASSIUM CHLORIDE TABS 10 MEQ TABLET.ER (FP) PO ONE (10:00)
[2019-04-23] MEDS: ENOXAPARIN NA (PORCINE) 40 MG/0.4 ML DISP.SYRIN SQ SCH (10:41)
[2019-04-23] MEDS: ASPIRIN 81 MG CHEWABLE TABLETS PO SCH (10:42)
[2019-04-23] MEDS: FUROSEMIDE 40 MG/4 ML INJECTABLE VIAL IVPUSH SCH (11:05)
--- NOTE | 2019-04-23 11:29 | EKG ---
Test Reason : Blood Pressure : / mmHG Vent. Rate : 100 BPM Atrial Rate : 100 BPM P-R Int : 162 ms QRS Dur : 168 ms QT Int : 404 ms P-R-T Axes : 081 019 259 degrees QTc Int : 521 ms NORMAL SINUS RHYTHM LEFT BUNDLE BRANCH BLOCK ABNORMAL ECG WHEN COMPARED WITH ECG OF 22-APR-2019 09:10, NO SIGNIFICANT CHANGE WAS FOUND Confirmed by Hermelindo Morse MD ([id number]) on 04/23/2019 11:29:18 AM Referred By: Confirmed By:Hermelindo Morse MD
[2019-04-23] MEDS: LEVOTHYROXINE NA 88 MCG TABLET (FP) PO SCH (11:40)
[2019-04-23] MEDS: INSULIN (LEVEMIR) 100 UNITS/ML UNITS SQ SCH (12:21)
--- NOTE | 2019-04-23 12:30 | CONSULT ---
Admitting History and Physical - Admission History of Present Illness: 83 F h/o HFrEF, CAD s/p CABG, HTN, Diabetes presents with near syncopal fall and weakness, in acute exacerbation, compensated heart failure Passed dysphagia screen. Diet ordered. Selected Entries 04/21/19 04/22/19 15:00 17:49 Temperature 97.7 F 97.7 F Laboratory Tests 04/22/19 04/23/19 06:00 06:40 WBC 7.5 9.8 Per emr-Pt a + O x3 VS WNL, afebrile. O2 2L NC, SPO2 94%. Appetite and oral hydration adequate - Smoking History Smoking history: Never smoked - Alcohol/Substance Use Hx Alcohol Use: No History - Admission Reason For Visit: WEAKNESS/ACUTE ON CHRONIC CONGESTIVE HEART FAILURE
--- NOTE | 2019-04-23 13:07 | PN ---
Progress Note, Physician Chief Complaint: 24 HR events -pt evaluated by cardiology for CHF exacerbation. IV lasix to diurese -Echo ordered and is pending completion -BG remains uncontrolled, levemir started this AM -planned transfer to [facility] for tele bed due to 48hr wait in ED. History of Present Illness: 83 year old woman with a PMH of HFrEF, CAD s/p CABG and Insulin-treated DM presenting with weakness. Per daughter, she was feeling weak for several dwas evaluated at an urgent care on 04/14/19 and diagnosed with PNA which was treated with amoxicillin. Due to worsening resp status, pt was brought into the Ed and started on Lasix for lower extremity edema/CHF exacerbation. - Current Medication List Current Medications: Active Medications Aspirin (Asa -) 81 mg PO DAILY [facility] Last Admin: 04/23/19 10:42 Dose: 81 mg Atorvastatin Calcium (Lipitor -) 40 mg PO HS [facility] Enoxaparin Sodium (Lovenox -) 40 mg SQ DAILY [facility] Last Admin: 04/23/19 10:41 Dose: 40 mg Furosemide (Lasix Injection -) 40 mg IVPUSH DAILY [facility] Last Admin: 04/23/19 11:05 Dose: 40 mg Insulin Aspart (Novolog Vial Sliding Scale -) 1 vial SQ [facility]; Protocol Last Admin: 04/23/19 11:41 Dose: 7 units Insulin Detemir (Levemir Vial) 5 units SQ DAILY@0700 [facility] Last Admin: 04/23/19 12:21 Dose: 5 units Levothyroxine Sodium (Synthroid -) 88 mcg PO DAILY@0700 [facility] Last Admin: 04/23/19 11:40 Dose: 88 mcg - Objective Vital Signs: Vital Signs Temperature 97.7 F 04/22/19 17:49 Pulse Rate 106 H 04/22/19 20:49 Respiratory Rate 20 04/22/19 20:49 Blood Pressure 135/78 04/22/19 20:49 O2 Sat by Pulse Oximetry (%) 99 04/23/19 00:03 Constitutional: Yes: Anxious, Cachectic, Thin Eyes: Yes: Conjunctiva Clear, PERRL HENT: Yes: Atraumatic, Normocephalic Neck: Yes: Supple, Other (+JVD) Cardiovascular: Yes: Regular Rate and Rhythm Respiratory: Yes: Regular, Diminished (bases), Other (poor inspiratory effort) Gastrointestinal: Yes: Normal Bowel Sounds, Soft ...Rectal Exam: Yes: Deferred Musculoskeletal: Yes: WNL Extremities: Yes: WNL Edema: No Peripheral Pulses WNL: Yes Peripheral Pulses: Left Radial: 2+, Right Radial: 2+, Left Doralis Pedis: 2+, Right Dorsalis Pedis: 2+ Neurological: Yes: Alert ...Motor Strength: WNL Psychiatric: Yes: Alert, Other (periods of confusion/forgetfulness) Labs: CBC, BMP 04/23/19 06:40 04/23/19 06:40 INR, PTT INR 1.09 (0.83-1.09) 04/21/19 19:45 - ....Imaging Chest X-ray: Report Reviewed (CXR 04/22/19 Single AP view of the chest has been submitted. There is a large heart, sternal sutures and clips, sclerotic knob and congestive changes with some right pleural fluid and uestionable bibasilar infiltrates. Correlation recommended. Reported By: Shahbaz Pizano MD 04/22/19 0648) X-ray: Report Reviewed Cat Scan: Report Reviewed (Ct chest 04/22/2019 IMPRESSION: 1. Cardiomegaly, mild congestion and bilateral pleural effusions, right greater than left. 2. Findings consistent with prior granulomatous disease, including a left upper lobe granuloma and hepatic and splenic granulomata. Clinical correlation and follow-up recommended. Please see above discussion. Reported By: Korey Guerrero MD 04/22/19 1477), Other ( Head CT 04/22/2019 IMPRESSION:No evidence of acute intracranial hemorrhage, edema, midline shift, mass effect, or skull fracture. No CT evidence of acute territorial ischemic changes. Moderate supratentorial chronic white matter microangiopathic ischemic changes gliosis.Well demarcated hypodensity is noted in the right posterior frontal lobe centrum semiovale, right precentral gyrus, likely represent chronic infarct. Reported By: Roni Sosa MD 04/22/19 2031) Other: Report Reviewed (CArotid doppler 04/22/2019 IMPRESSION: Moderate atherosclerotic disease, right greater than left, with no evidence of hemodynamically significant stenoses. Reported By: Korey Guerrero MD [id number]) Problem List - Problems (1) CAD (coronary artery disease) Assessment/Plan: Statin to restart tonight continue aspirin cardiac diet Problems reviewed: Yes Code(s): I25.10 - ATHSCL HEART DISEASE OF [place] CORONARY ARTERY W/O ANG PCTRS (2) Diabetes mellitus type 2, uncontrolled Assessment/Plan: start levemir 5units insulin SS fingerstick AC/HS diabetic diet Problems reviewed: Yes Code(s): E11.65 - TYPE 2 DIABETES MELLITUS WITH HYPERGLYCEMIA Qualifiers: Glycemic state: with hyperglycemia Qualified Code(s): E11.65 - Type 2 diabetes mellitus with hyperglycemia (3) CHF exacerbation Assessment/Plan: lasix 40mg daily trend serum creatinine replete electrolytes as needed cardiology following strict intake and output fluid restrict to 1L daily cardiac diet echo ordered Problems reviewed: Yes Code(s): I50.9 - HEART FAILURE, UNSPECIFIED Qualifiers: Heart failure type: unspecified Qualified Code(s): I50.9 - Heart failure, unspecified Impression/Plan Impression/Plan: DVT ppx: lovenox SC Code status: Full Visit type - Emergency Visit Emergency Visit: Yes ED Registration Date: 04/21/19 Care time: The patient presented to the Emergency Department on the above date and was hospitalized for further evaluation of their emergent condition. - New Patient This patient is new to me today: Yes Date on this admission: 04/23/19 - Critical Care Critical Care patient: No - Discharge Referral Referred to [facility] Med P.C.: No
--- NOTE | 2019-04-23 15:29 | ECHO ---
Version: 1 Name: ALBA ZHANG Exam: Adult Echocardiogram Study Date: 04/23/2019, 2:29 PM Age: 83 Years MMode/2D Measurements & Calculations IVSd: 1.00 cm LVIDs: 3.5 cm LVIDd: 4.0 cm LVPWd: 1.04 cm LAV (MOD-bp): 38.0 ml LVOT diam: 1.62 cm Ao root diam: 2.6 cm LA dimension: 3.6 cm Doppler Measurements & Calculations MV E max jim: 108.1 cm/sec MV A max jim: 98.2 cm/sec MV E/A: 1.10 Lat E/e': 10.1 Lat Peak E' Jim: 10.7 cm/sec MR max P.2 mmHg Ao max P.3 mmHg Ao V2 max: 135.1 cm/sec PI end-d jim: 170.4 cm/sec TR max jim: 304.5 cm/sec TR max P.8 mmHg Procedure A limited two-dimensional transthoracic echocardiogram was performed (2D). Left Ventricle The left ventricle is normal in size. Left ventricular systolic function is severely reduced. Global LV hypokinesis. Ejection Fraction = 30%. There is septal dyskinesis. There is severe global hypokinesis of the left ventricle. Right Ventricle The right ventricle is normal in size and function. Atria Normal left and right atrial size and function. Mitral Valve There is mild to moderate mitral annular calcification. There is mild mitral regurgitation. Tricuspid Valve The tricuspid valve is not well visualized, but is grossly normal. There is mild to moderate tricusp id regurgitation. Aortic Valve There is moderate aortic sclerosis.;. Pulmonic Valve The pulmonic valve is not well visualized. Great Vessels The aortic root is normal size. Normal aortic arch, descending and ascending aorta. Pericardium/Pleura There is a mild pericardial effusion. Summary Statements A limited two-dimensional transthoracic echocardiogram was performed (2D). The left ventricle is normal in size. Left ventricular systolic function is severely reduced. There is septal dyskinesis. There is severe global hypokinesis of the left ventricle. Ejection Fraction = 30%. The right ventricle is normal in size and function. Normal left and right atrial size and function. There is mild to moderate mitral annular calcification. There is mild mitral regurgitation. The tricuspid valve is not well visualized, but is grossly normal. There is mild to moderate tricuspid regurgitation. There is moderate aortic sclerosis.; The pulmonic valve is not well visualized. The aortic root is normal size. Normal aortic arch, descending and ascending aorta There is a mild pericardial effusion. Bryson Hair 04/23/2019, 3:29 PM Ordering Physician: Shahbaz Gibson Referring Physician: SHAHBAZ GIBSON Performed By: Lata Power
--- NOTE | 2019-04-23 15:32 | CONSULT ---
Admitting History and Physical - Admission History of Present Illness: 83 F h/o HFrEF, CAD s/p CABG, HTN, Diabetes presents with near syncopal fall and weakness, in acute exacerbation, compensated heart failure Passed dysphagia screen. Diet ordered. Selected Entries 04/21/19 04/22/19 15:00 17:49 Temperature 97.7 F 97.7 F Laboratory Tests 04/22/19 04/23/19 06:00 06:40 WBC 7.5 9.8 Per emr-Pt a + O x3 VS WNL, afebrile. O2 2L NC, SPO2 94%. 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 Oriented to place, [place], age, April.), Awake and Alert, Able to Follow Commands, Forgetful Attention: Intact Ability to Follow Directions: Good Head/Neck Control: Good - Hearing Hearing: Functional Speech Evaluation - Communication Primary Language: KAZAKH Communication: Yes: Within Normal Limits - Speech Production Able to Make Needs Known: Yes: WNL Intelligibility: Yes: WNL - Speech Characteristics Voice Loudness: Normal Voice Pitch: Yes: Normal Voice Phonatory-based Quality: Yes: Normal Speech Pattern: Normal Speech Clarity: < 100% Nasal Resonance: Normal Articulation: Yes: Precise Rate of Speech: Intact - Language/Auditory Comprehension Observation: Able to respond to yes/no queries: Yes, Yes/No Confusion: No, Comprehends Conversational Speech: Yes - Language/Verbal Expression Able to Respond to Simple Queries: Yes: WNL Able to Communicate Wants and Needs: Yes: WNL Functional Communication Status: Yes: WNL - Swallow Evaluation/Bedside Assessment Current Nutritional Intake: Regular, Thin Liquids Oral Secretions: Yes: WFL Dentition: Yes: Adequate, Missing Teeth Facial Symmetry at Rest: Symmetrical Facial Symmetry on Retraction: Symmetrical Facial Movement: Controlled Sensation: Normal Against Resistance Opening: Normal Against Resistance Closing: Normal Pucker Lips: Normal Smile: Normal Lingual Movement: Normal, Symmetric Lingual Speed of Movement: Normal Lingual Movement Strgth Against Opposition: Normal Lingual Movement Characteristics: Normal Velopharyngeal Movement: Normal Laryngeal Elevation: WFL Laryngeal Movement: Able to Palpate Rate of Intake: WFL Bolus Size: WFL Labial Seal: WFL Chewing: WFL Oral Prep Time: WFL A-P Transit: WFL Pocketing: None Timing of Swallow: WFL Coughing/Throat Clear: No Change in Voice: No Recommendations - Speech Evaluation, Impression/Plan Impression: Pt's son believes she is getting more confused recently. Pt is friendly, happy, very talkative. Speech, language, swallowing intact. - Disposition Discharge to: To be Determined - Dysphagia Impressions/Plan Swallowing Skills: WFL Dysphagia Impressions: No Impairment *Silent aspiration: cannot be R/O at bedside - Recommendations Diet Consistency: Regular (soft) Medication Administration: Whole with water Liquids: Thin Liquids
--- NOTE | 2019-04-23 19:27 | PN ---
Progress Note, Physician Chief Complaint: Pt smiling; denies chest pain dyspnea. Confused to time, place, reason for being in the ER. Her grandson is at bedside; her daughter was spoken to by telephone. History of Present Illness: The patient is an 83 year old woman with a past medical history of CAD s/p CABG , systolic CHF, diabetes, HTN, ?dementia, here today for evaluation of weakness. The patient reports that she felt weak this morning and slid out of bed to the floor and was unable to get up. She was found by her daughter. Patient also reports that she was diagnosed with pneumonia on on monday (2019) at an urgent care and was started on amoxicillin; it was reportedly stopped when she developed diarrhea. - Current Medication List Current Medications: Active Medications Aspirin (Asa -) 81 mg PO DAILY [facility] Last Admin: 04/23/19 10:42 Dose: 81 mg Atorvastatin Calcium (Lipitor -) 40 mg PO [facility] Enoxaparin Sodium (Lovenox -) 40 mg SQ DAILY [facility] Last Admin: 04/23/19 10:41 Dose: 40 mg Furosemide (Lasix Injection -) 40 mg IVPUSH DAILY [facility] Last Admin: 04/23/19 11:05 Dose: 40 mg Insulin Aspart (Novolog Vial Sliding Scale -) 1 vial SQ [facility]; Protocol Last Admin: 04/23/19 17:52 Dose: Not Given Insulin Detemir (Levemir Vial) 5 units SQ DAILY@0700 [facility] Last Admin: 04/23/19 12:21 Dose: 5 units Levothyroxine Sodium (Synthroid -) 88 mcg PO DAILY@0700 [facility] Last Admin: 04/23/19 11:40 Dose: 88 mcg - Objective Vital Signs: Vital Signs Temperature 98.3 F 04/23/19 18:55 Pulse Rate 78 04/23/19 18:55 Respiratory Rate 18 04/23/19 18:55 Blood Pressure 161/82 04/23/19 18:55 O2 Sat by Pulse Oximetry (%) 99 04/23/19 18:55 Constitutional: Yes: Calm, Other (confused) Eyes: Yes: WNL HENT: Yes: WNL Cardiovascular: Yes: Murmur (2/4 diastolic murmur, RSB-->apex), S1, S2 (split), S4 ...Rectal Exam: Yes: Deferred Genitourinary: No: Anuria Breast(s): Yes: WNL Musculoskeletal: Yes: WNL Extremities: Yes: WNL Edema: No Peripheral Pulses WNL: Yes Integumentary: Yes: WNL Neurological: Yes: Alert Psychiatric: Yes: Alert, Other (drake says her mother has been progressively confused/disoriented). No: Oriented Labs: CBC, BMP 04/23/19 06:40 04/23/19 06:40 INR, PTT INR 1.09 (0.83-1.09) 04/21/19 19:45 - ....Imaging Chest X-ray: Image Reviewed Cat Scan: Image Reviewed (CT chest: bilateral pleural effusion) Ultrasound: Report Reviewed (ECHO: severely reduced LVEF; mild pericardial effusion) EKG: Image Reviewed (NSR; LBBB) Problem List - Problems (1) Acute on chronic systolic CHF (congestive heart failure) Assessment/Plan: + JVD BNP markedly elevated. CT chest: significant bilateral pleural effusion; moderately enlarged heart. ECHO: severely reduced LVEF; mild-moderate TR; mild pericardial effusion. Plan: Pt received furosemide 40 mg (continue IVP until acute phase resolves). Start Entresto bid. Start carvedilol 3.125 mg bid. Plan for spironolactone if the above medications are tolerated. F/u BUN/Cr, electrolytes, daily weight, Is and Os. 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 Sam (she only recently began seeing him, after transferring from an MD in [facility]). Pt with hx CABG. A stress MIBI 03/2019 showed no ischemia, with fixed areas suggestive of old infarct. ECHO done there recently showed significantly reduced LVEF; it well be checked for whether pericardial effusion was noted at that time. Code(s): I50.23 - ACUTE ON CHRONIC SYSTOLIC (CONGESTIVE) HEART FAILURE (2) CAD (coronary artery disease) Assessment/Plan: s/p CABG. Stress MIBI 03/21 reported negative for ischemia, with areas of infarct; reduced LVEF. Code(s): I25.10 - ATHSCL HEART DISEASE OF [place] CORONARY ARTERY W/O ANG PCTRS (3) Diabetes mellitus type 2, uncontrolled Code(s): E11.65 - TYPE 2 DIABETES MELLITUS WITH HYPERGLYCEMIA Qualifiers: Glycemic state: with hyperglycemia Qualified Code(s): E11.65 - Type 2 diabetes mellitus with hyperglycemia (4) Pneumonia Code(s): J18.9 - PNEUMONIA, UNSPECIFIED ORGANISM (5) Dementia Assessment/Plan: pt's daughter says her mother has become increasingly disoriented, and can become "difficult to control" at times. Head CT: possible chronic infarct right posterior frontal lobe; moderately diffuse microangiopathic ischemic changes. Code(s): F03.90 - UNSPECIFIED DEMENTIA WITHOUT BEHAVIORAL DISTURBANCE (6) Elevated troponin Assessment/Plan: TNI 0.13-->0.27-->0.18; CK MB relative index < 5; maximum CK 198. EKG: sinus tachycardia; LBBB. ECHO: severely reduced LVEF. Hx CABG. Stress MIBI 03/21: no ischemia. Doubt acute coronary event; demand stressors here include acute CHF, tachycardia , recent treatment for "pneumonia", uncontrolled HTN, renal dysfunction. Treatment of acute CHF is of prime importance. Code(s): R79.89 - OTHER SPECIFIED ABNORMAL FINDINGS OF BLOOD CHEMISTRY (7) Renal dysfunction Assessment/Plan: Plan to reduce furosemide dose once CHF is better controlled; avoid excessive dehydration. Code(s): N28.9 - DISORDER OF KIDNEY AND URETER, UNSPECIFIED
[2019-04-23 20:50] LABS: CHOLESTEROL 136 mg/dL (50-200); HDL CHOLESTEROL 56 mg/dL (40-60); LDL CHOLESTEROL (ONLY SJRH) 63 mg/dL (5-100); TRIGLYCERIDES 136 mg/dL (0-150)
[2019-04-23] MEDS: ATORVASTATIN CA 40 MG TABLET (FP) PO SCH (21:43)
[2019-04-23] MEDS: CARVEDILOL 3.125 MG TABLET (FP) PO SCH (21:43)
[2019-04-23] MEDS: SACUBITRIL/VALSARTAN 24 MG-26 MG TABLET PO SCH (21:43)
[2019-04-24] MEDS: INSULIN (LEVEMIR) 100 UNITS/ML UNITS SQ SCH (06:32)
[2019-04-24] MEDS: LEVOTHYROXINE NA 88 MCG TABLET (FP) PO SCH (06:32)
[2019-04-24] MEDS: INSULIN SLIDING SCALE (NOVOLOG) 1 VIAL SQ SCH ×3 (06:33→16:50)
[2019-04-24 08:03] LABS: BASO % 0.6 % (0-2.0); EOS % 2.3 % (0-4.5); HEMOGLOBIN 10.6 GM/dl (10.7-15.3); LYMPH % 15.4 % (8-40); MCH 25.5 pg (25.7-33.7); MCHC 31.3 g/dl (32.0-36.0); MEAN CELL VOLUME 81.4 fl (80-96); MEAN PLT VOLUME 9.1 fl (7.5-11.1); MONO % 5.9 % (3.8-10.2); NEUT % 75.8 % (42.8-82.8); PLATELET COUNT 198 K/MM3 (134-434); RBC 4.18 M/mm3 (3.60-5.2); WHITE BLOOD COUNT 7.8 K/mm3 (4.0-10.8)
[2019-04-24 08:12] LABS: ALBUMIN 2.9 g/dl (3.4-5.0); BILIRUBIN,TOTAL 1.2 mg/dl (0.2-1); CALCIUM 8.1 mg/dl (8.5-10); MAGNESIUM 1.5 mg/dL (1.8-2.4); TOT PROT 5.6 g/dl (6.4-8.2)
[2019-04-24] MEDS: ASPIRIN 81 MG CHEWABLE TABLETS PO SCH (09:39)
[2019-04-24] MEDS: CARVEDILOL 3.125 MG TABLET (FP) PO SCH ×2 (09:39→21:24)
[2019-04-24] MEDS: SACUBITRIL/VALSARTAN 24 MG-26 MG TABLET PO SCH ×2 (09:39→21:27)
[2019-04-24] MEDS: ENOXAPARIN NA (PORCINE) 40 MG/0.4 ML DISP.SYRIN SQ SCH (09:40)
[2019-04-24] MEDS: FUROSEMIDE 40 MG/4 ML INJECTABLE VIAL IVPUSH SCH (09:40)
--- NOTE | 2019-04-24 10:30 | PN ---
Progress Note, Physician History of Present Illness: The patient is an 83 year old female with a past medical history of CAD s/p CABG and diabetes here today for evaluation of weakness. The patient reports that she felt weak this morning and slid out of bed to the floor and was unable to get up. She was found by her daughter. Patient also reports that she was diagnosed with pneumonia on on monday (04/14/2019) at an urgent care and was started on amoxicillin. Allergies: NKA PCP: Paul Alves - Current Medication List Current Medications: Active Medications Aspirin (Asa -) 81 mg PO DAILY [facility] Last Admin: 04/24/19 09:39 Dose: 81 mg Atorvastatin Calcium (Lipitor -) 40 mg PO HS [facility] Last Admin: 04/23/19 21:43 Dose: 40 mg Carvedilol (Coreg -) 3.125 mg PO BID [facility] Last Admin: 04/24/19 09:39 Dose: 3.125 mg Enoxaparin Sodium (Lovenox -) 40 mg SQ DAILY [facility] Last Admin: 04/24/19 09:40 Dose: 40 mg Furosemide (Lasix Injection -) 40 mg IVPUSH DAILY [facility] Last Admin: 04/24/19 09:40 Dose: 40 mg Insulin Aspart (Novolog Vial Sliding Scale -) 1 vial SQ [facility]; Protocol Last Admin: 04/24/19 06:33 Dose: Not Given Insulin Detemir (Levemir Vial) 5 units SQ DAILY@0700 [facility] Last Admin: 04/24/19 06:32 Dose: 5 units Levothyroxine Sodium (Synthroid -) 88 mcg PO DAILY@0700 [facility] Last Admin: 04/24/19 06:32 Dose: 88 mcg Sacubitril/Valsartan (Entresto 24 Mg-26 Mg Tablet) 1 tab PO BID [facility] Last Admin: 04/24/19 09:39 Dose: 1 tab - Objective Vital Signs: Vital Signs Temperature 97.9 F 04/24/19 06:00 Pulse Rate 91 H 04/24/19 06:00 Respiratory Rate 18 04/24/19 06:00 Blood Pressure 137/77 04/24/19 06:00 O2 Sat by Pulse Oximetry (%) 97 04/24/19 06:00 Eyes: Yes: WNL, Conjunctiva Clear, EOM Intact HENT: Yes: WNL, Atraumatic, Normocephalic Neck: Yes: WNL, Supple, Trachea Midline Cardiovascular: Yes: WNL, Regular Rate and Rhythm Respiratory: Yes: WNL, Regular, CTA Bilaterally Gastrointestinal: Yes: WNL, Normal Bowel Sounds Genitourinary: Yes: WNL Musculoskeletal: Yes: WNL Extremities: Yes: WNL Edema: No Integumentary: Yes: WNL Neurological: Yes: WNL, Alert, Oriented ...Motor Strength: WNL Psychiatric: Yes: WNL Labs: CBC, BMP 04/24/19 07:20 04/24/19 07:20 INR, PTT INR 1.09 (0.83-1.09) 04/21/19 19:45 Problem List - Problems (1) CHF exacerbation Code(s): I50.9 - HEART FAILURE, UNSPECIFIED Qualifiers: Heart failure type: unspecified Qualified Code(s): I50.9 - Heart failure, unspecified Assessment/Plan - Problems (1) Acute on chronic systolic CHF (congestive heart failure) Assessment/Plan: + JVD BNP markedly elevated. CT chest: significant bilateral pleural effusion; moderately enlarged heart. ECHO: severely reduced LVEF; mild-moderate TR; mild pericardial effusion. Plan: Pt received furosemide 40 mg (continue IVP until acute phase resolves). Start Entresto bid. Start carvedilol 3.125 mg bid. Plan for spironolactone if the above medications are tolerated. F/u BUN/Cr, electrolytes, daily weight, Is and Os. 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 Sma (she only recently began seeing him, after transferring from an MD in [facility]). Pt with hx CABG. A stress MIBI 03/2019 showed no ischemia, with fixed areas suggestive of old infarct. ECHO done there recently showed significantly reduced LVEF; it well be checked for whether pericardial effusion was noted at that time. Code(s): I50.23 - ACUTE ON CHRONIC SYSTOLIC (CONGESTIVE) HEART FAILURE (2) CAD (coronary artery disease) Assessment/Plan: s/p CABG. Stress MIBI 03/21 reported negative for ischemia, with areas of infarct; reduced LVEF. Code(s): I25.10 - ATHSCL HEART DISEASE OF [place] CORONARY ARTERY W/O ANG PCTRS (3) Diabetes mellitus type 2, uncontrolled Code(s): E11.65 - TYPE 2 DIABETES MELLITUS WITH HYPERGLYCEMIA Qualifiers: Glycemic state: with hyperglycemia Qualified Code(s): E11.65 - Type 2 diabetes mellitus with hyperglycemia (4) Pneumonia Code(s): J18.9 - PNEUMONIA, UNSPECIFIED ORGANISM (5) Dementia Assessment/Plan: pt's daughter says her mother has become increasingly disoriented, and can become "difficult to control" at times. Head CT: possible chronic infarct right posterior frontal lobe; moderately diffuse microangiopathic ischemic changes. Code(s): F03.90 - UNSPECIFIED DEMENTIA WITHOUT BEHAVIORAL DISTURBANCE (6) Elevated troponin Assessment/Plan: TNI 0.13-->0.27-->0.18; CK MB relative index < 5; maximum CK 198. EKG: sinus tachycardia; LBBB. ECHO: severely reduced LVEF. Hx CABG. Stress MIBI 03/21: no ischemia. Doubt acute coronary event; demand stressors here include acute CHF, tachycardia , recent treatment for "pneumonia", uncontrolled HTN, renal dysfunction. Treatment of acute CHF is of prime importance. Code(s): R79.89 - OTHER SPECIFIED ABNORMAL FINDINGS OF BLOOD CHEMISTRY (7) Renal dysfunction Assessment/Plan: Plan to reduce furosemide dose once CHF is better controlled; avoid excessive dehydration. Code(s): N28.9 - DISORDER OF KIDNEY AND URETER, UNSPECIFIED
[2019-04-24 11:01] LABS: N-TERMINAL BNP 16771.9 pg/ml (5-450)
--- NOTE | 2019-04-24 12:45 | CONSULT ---
Consult Consult Specialty:: Endocrine Referred by:: Dr.Nsheiwat Ash Reason for Consultation:: Hypothyroidism/dmt2 - History of Present Illness Chief Complaint: weakness and passed out History of Present Illness: 83 year old female with a past medical history of Hyppthyroidism, DMT2, Osteoporosis,CAD (s/p CABG), HTN, who presents to the ED with respiratory difficulty and weakness. Patient was at her PCP one week prior and diagnosed with PNA and started on amoxicillin 500mg bid has had weakness and loose BM,daughter found patient on floor at home after she was unable to contact patient on the phone.patient did not recall having chest pain,fever cough or vomiting. - Past Medical History ...: No - Alcohol/Substance Use Hx Alcohol Use: No - Smoking History Smoking history: Never smoked Home Medications - Allergies Allergies/Adverse Reactions: Allergies Allergy/AdvReac Type Severity Reaction Status Date / Time No Known Allergies Allergy Verified 04/21/19 15:25 - Home Medications Home Medications: Ambulatory Orders Aspirin [Aspirin EC] 325 mg PO DAILY 04/22/19 Atorvastatin Ca [Lipitor] 40 mg PO HS 04/22/19 Insulin Glargine,Hum.rec.anlog [Basaglar Kwikpen U-100] 20 unit SQ DAILY Levothyroxine Sodium [Synthroid] 88 mcg PO DAILY 04/22/19 Metformin HCl [Glucophage] 1,000 mg PO BID 04/22/19 Valsartan 320 mg PO DAILY 04/22/19 Review of Systems - Review of Systems Constitutional: reports: Lethargy, Weakness Eyes: reports: No Symptoms HENT: reports: No Symptoms Neck: reports: Swollen Glands Cardiovascular: reports: Shortness of Breath Respiratory: reports: Exercise Intolerance, SOB on Exertion Gastrointestinal: reports: No Symptoms Genitourinary: reports: No Symptoms Breasts: reports: No Symptoms Reported Musculoskeletal: reports: Joint Pain, Muscle Cramps Integumentary: reports: No Symptoms Neurological: reports: Weakness Endocrine: reports: Unexplained Weight Loss Physical Exam Vital Signs: Vital Signs Temperature 97.9 F 04/24/19 06:00 Pulse Rate 91 H 04/24/19 06:00 Respiratory Rate 18 04/24/19 06:00 Blood Pressure 137/77 04/24/19 06:00 O2 Sat by Pulse Oximetry (%) 97 04/24/19 06:00 Constitutional: Yes: Calm Eyes: Yes: EOM Intact HENT: Yes: Normocephalic Neck: Yes: Trachea Midline Respiratory: Yes: CTA Bilaterally Gastrointestinal: Yes: Normal Bowel Sounds ...Rectal Exam: Yes: Deferred Renal/: Yes: WNL Musculoskeletal: Yes: Muscle Weakness Extremities: Yes: WNL Integumentary: Yes: WNL Neurological: Yes: Alert, Oriented Labs: CBC, BMP 04/24/19 07:20 04/24/19 07:20 Problem List - Problems (1) Hypothyroidism, unspecified Code(s): E03.9 - HYPOTHYROIDISM, UNSPECIFIED Qualifiers: 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 Qualified Code(s): E03.8 - Other specified hypothyroidism; E06.3 - Autoimmune thyroiditis (2) Acute on chronic systolic CHF (congestive heart failure) Code(s): I50.23 - ACUTE ON CHRONIC SYSTOLIC (CONGESTIVE) HEART FAILURE (3) CAD (coronary artery disease) Code(s): I25.10 - ATHSCL HEART DISEASE OF [place] CORONARY ARTERY W/O ANG PCTRS (4) CHF exacerbation Code(s): I50.9 - HEART FAILURE, UNSPECIFIED Qualifiers: Heart failure type: unspecified Qualified Code(s): I50.9 - Heart failure, unspecified (5) Dementia Code(s): F03.90 - UNSPECIFIED DEMENTIA WITHOUT BEHAVIORAL DISTURBANCE (6) Diabetes mellitus type 2, uncontrolled Code(s): E11.65 - TYPE 2 DIABETES MELLITUS WITH HYPERGLYCEMIA Qualifiers: Glycemic state: with hyperglycemia Qualified Code(s): E11.65 - Type 2 diabetes mellitus with hyperglycemia (7) Pneumonia Code(s): J18.9 - PNEUMONIA, UNSPECIFIED ORGANISM (8) Renal dysfunction Code(s): N28.9 - DISORDER OF KIDNEY AND URETER, UNSPECIFIED Assessment/Plan Current Active Problems HYPOTHYROIDISM THYROIDITIS SOHAM Acute on chronic systolic CHF (congestive heart failure) (Acute) CAD (coronary artery disease) (Acute) CHF exacerbation (Acute) Dementia (Acute) Diabetes mellitus type 2, uncontrolled (Acute) Elevated troponin (Acute) Pneumonia (Acute) Renal dysfunction (Acute) Abnormal Lab Results 04/24/19 04/24/19 07:20 07:20 Hgb 10.6 L MCH 25.5 L MCHC 31.3 L Sodium 134 L Potassium 3.0 L Anion Gap 7 L BUN 22.0 H Random Glucose 124 H Calcium 8.1 L Magnesium 1.5 L Total Bilirubin 1.2 H B-Natriuretic Peptide 72680.9 H Total Protein 5.6 L Albumin 2.9 L Laboratory Results - last 24 hr 04/23/19 04/23/19 04/23/19 06:40 06:40 20:13 WBC RBC Hgb Hct MCV MCH MCHC RDW Plt Count MPV Absolute Neuts (auto) Neutrophils % Lymphocytes % Monocytes % Eosinophils % Basophils % Sodium Potassium Chloride Carbon Dioxide Anion Gap BUN Creatinine Est GFR (CKD-EPI)AfAm Est GFR (CKD-EPI)NonAf POC Glucometer 111 Random Glucose Calcium Phosphorus Magnesium Total Bilirubin AST ALT Alkaline Phosphatase B-Natriuretic Peptide Total Protein Albumin Triglycerides 136 Cholesterol 136 Total LDL Cholesterol 63 HDL Cholesterol 56 Thyroid Peroxidase Ab 17 04/24/19 04/24/19 04/24/19 06:04 07:20 07:20 WBC 7.8 RBC 4.18 Hgb 10.6 L Hct 34.0 MCV 81.4 MCH 25.5 L MCHC 31.3 L RDW 15.0 Plt Count 198 MPV 9.1 Absolute Neuts (auto) 5.9 Neutrophils % 75.8 Lymphocytes % 15.4 Monocytes % 5.9 Eosinophils % 2.3 Basophils % 0.6 Sodium 134 L Potassium 3.0 L Chloride 100 Carbon Dioxide 27 Anion Gap 7 L BUN 22.0 H Creatinine 1.0 Est GFR (CKD-EPI)AfAm 60.76 Est GFR (CKD-EPI)NonAf 52.42 POC Glucometer 126 Random Glucose 124 H Calcium 8.1 L Phosphorus 4.0 Magnesium 1.5 L Total Bilirubin 1.2 H AST 22 ALT 13 Alkaline Phosphatase 58 B-Natriuretic Peptide 94164.9 H Total Protein 5.6 L Albumin 2.9 L Triglycerides Cholesterol Total LDL Cholesterol HDL Cholesterol Thyroid Peroxidase Ab 04/24/19 11:26 WBC RBC Hgb Hct MCV MCH MCHC RDW Plt Count MPV Absolute Neuts (auto) Neutrophils % Lymphocytes % Monocytes % Eosinophils % Basophils % Sodium Potassium Chloride Carbon Dioxide Anion Gap BUN Creatinine Est GFR (CKD-EPI)AfAm Est GFR (CKD-EPI)NonAf POC Glucometer 120 Random Glucose Calcium Phosphorus Magnesium Total Bilirubin AST ALT Alkaline Phosphatase B-Natriuretic Peptide Total Protein Albumin Triglycerides Cholesterol Total LDL Cholesterol HDL Cholesterol Thyroid Peroxidase Ab PLAN; BGM ACHS NOVOLOG SCALE DIET NUTRITION GIVEN RISK HYPOGLYCEMIA HIGH FOR PT USE METFORMIN 500MG BID TITRATE TOLERATED JANUVIA 50MG BID FREE T4 SYNTHROID 88MCG GIVE ALONE FASTING
[2019-04-24] MEDS ORDERED: metFORMIN HCL 500 MG TABLET (FP) PO SCH (16:30)
[2019-04-24] MEDS ORDERED: MAGNESIUM SULF 50% (8.12 MEQ/2 ML-1 GM VIAL) IVPB ONE (19:20)
[2019-04-24] MEDS: POTASSIUM CHLORIDE TABS 20 MEQ TABLET.ER (FP) PO SCH (19:30)
[2019-04-24] MEDS ORDERED: MAGNESIUM SULF 50% (8.12 MEQ/2 ML-1 GM VIAL) ONE (19:41)
[2019-04-24 19:48] LABS: CALCIUM 8.5 mg/dl (8.5-10); CREATININE 1.1 mg/dl (0.55-1.3); MAGNESIUM 1.5 mg/dL (1.8-2.4)
[2019-04-24] MEDS: ATORVASTATIN CA 40 MG TABLET (FP) PO SCH (21:24)
--- NOTE | 2019-04-24 23:44 | PN ---
Documentation entered by Zari Brunner SCRIBE, acting as scribe for Jocelyne Dang NP. Physical Exam: SUBJECTIVE: Patient seen and examined oob to chair. British-speaking medical imaging specialist served in translation. OBJECTIVE: Vital Signs Period Temp Pulse Resp BP Sys/Patel Pulse Ox Last 24 Hr 97.9 F-99.0 F 78-102 16-18 99-161/53-82 94-99 GENERAL: The patient is awake, alert, and fully oriented. Speaks in full sentences. In no acute distress. LUNGS: Diminished breath sounds on the right LL HEART: Regular rate and rhythm, S1, S2 ABDOMEN: Soft, nontender, nondistended edema. NEUROLOGICAL: Cranial nerves II through XII grossly intact. Normal speech, gait not observed. PSYCH: Normal mood, normal affect. SKIN: Warm, dry, normal turgor Laboratory Results - last 24 hr 04/23/19 04/23/19 04/23/19 06:40 06:40 06:40 WBC 9.8 RBC 4.41 Hgb 11.2 Hct 35.5 MCV 80.4 MCH 25.3 L MCHC 31.5 L RDW 15.9 H Plt Count 237 MPV 9.0 Absolute Neuts (auto) 8.7 H Neutrophils % 89.5 H D Lymphocytes % 5.5 L D Monocytes % 4.3 Eosinophils % 0.1 D Basophils % 0.6 Nucleated RBC % 0 Sodium 138 Potassium 3.5 Chloride 100 Carbon Dioxide 26 Anion Gap 13 BUN 23.9 H Creatinine 1.4 H Est GFR (CKD-EPI)AfAm 40.45 Est GFR (CKD-EPI)NonAf 34.90 POC Glucometer Random Glucose 284 H Calcium 9.3 Triglycerides Cholesterol Total LDL Cholesterol HDL Cholesterol Thyroid Peroxidase Ab 17 04/23/19 04/23/19 04/23/19 06:40 10:56 20:13 WBC RBC Hgb Hct MCV MCH MCHC RDW Plt Count MPV Absolute Neuts (auto) Neutrophils % Lymphocytes % Monocytes % Eosinophils % Basophils % Nucleated RBC % Sodium Potassium Chloride Carbon Dioxide Anion Gap BUN Creatinine Est GFR (CKD-EPI)AfAm Est GFR (CKD-EPI)NonAf POC Glucometer 318 111 Random Glucose Calcium Triglycerides 136 Cholesterol 136 Total LDL Cholesterol 63 HDL Cholesterol 56 Thyroid Peroxidase Ab 04/24/19 06:04 WBC RBC Hgb Hct MCV MCH MCHC RDW Plt Count MPV Absolute Neuts (auto) Neutrophils % Lymphocytes % Monocytes % Eosinophils % Basophils % Nucleated RBC % Sodium Potassium Chloride Carbon Dioxide Anion Gap BUN Creatinine Est GFR (CKD-EPI)AfAm Est GFR (CKD-EPI)NonAf POC Glucometer 126 Random Glucose Calcium Triglycerides Cholesterol Total LDL Cholesterol HDL Cholesterol Thyroid Peroxidase Ab Current Medications Generic Name Dose Route Start Last Admin Trade Name Freq PRN Reason Stop Dose Admin Aspirin 81 mg 04/22/19 10:00 04/24/19 09:39 Asa - PO 81 mg DAILY ANTHONY Administration Atorvastatin Calcium 40 mg 04/23/19 22:00 04/24/19 21:24 Lipitor - PO 40 mg HS ANTHONY Administration Atorvastatin Calcium 40 mg 04/25/19 22:00 Lipitor - PO HS ANTHONY Carvedilol 3.125 mg 04/23/19 20:00 04/24/19 21:24 Coreg - PO 3.125 mg BID ANTHONY Administration Enoxaparin Sodium 40 mg 04/22/19 10:00 04/24/19 09:40 Lovenox - SQ 40 mg DAILY ANTHONY Administration Insulin Aspart 1 vial 04/23/19 09:30 04/24/19 16:50 Novolog Vial Sliding Scale - SQ 2 units ACHS ANTHONY Administration Protocol Insulin Detemir 5 units 04/23/19 10:00 04/24/19 06:32 Levemir Vial SQ 5 units DAILY@0700 ANTHONY Administration Levothyroxine Sodium 88 mcg 04/23/19 10:00 04/24/19 06:32 Synthroid - PO 88 mcg DAILY@0700 ANTHONY Administration Metformin HCl 500 mg 04/24/19 16:30 04/24/19 16:35 Glucophage - PO 500 mg BID@0700,1630 ANTHONY Administration Potassium Chloride 40 meq 04/24/19 19:30 04/24/19 19:30 K-Dur - PO 04/25/19 01:31 40 meq Q6H ANTHONY Administration Sacubitril/Valsartan 1 tab 04/23/19 20:00 04/24/19 21:27 Entresto 24 Mg-26 Mg Tablet PO 1 tab BID ANTHONY Administration Sitagliptin Phosphate 50 mg 04/25/19 07:00 Januvia - PO DAILY@0700 [facility] ASSESSMENT/PLAN 83 year-old female with a PMH significant for HTN, CAD s/p CABG, systolic heart failure, Type II IDDM, and hypothyrodism, admitted for acute on chronic systolic heart failure in the setting of recent pneumonia diagnosis. Severe acute on chronic systolic heart failure --04/23 Echo: LV function severely reduced, global LV hypokinesis, EF 30%, septal dyskinesis, severe global hypokinesis of LV; RV normal; mild MR; mild to moderate TR; mild pericardial effusion --BNP 16,772, mild congestion and bilateral pleural effusions R>L on initial CT --Lasix IV 40mg daily for past 3 days, renal function has remained stable, continue --continue Entresto, carvedilol; per cardiology, plan for spironolactone if these meds are tolerated --daily weights, strict I&Os, pre post in am Coronary artery disease s/p CABG --stress MIBI 03/2019 no ischemia, fixed areas suggestive of old infarct --troponins peaked 0.31, down trending; seen and evaluated by cardiology, doubt ACS; demand stressors: acute CHF, tachycardia, recent pneumonia, uncontrolled HTN, renal dysfunction --continue ASA, statin, carvedilol Hypertension --continue Entresto, carvedilol Type II IDDM --Novolog sliding scale coverage --Levemir; recalculate needs in am Hypothyoridism --continue levothyroxine FEN Fluids: PO intake adequate Electrolytes: replete as indicated Nutrition: diabetic, low sodium DVT prophylaxis: subq lovenox Physical therapy Dispo: continues to require inpatient care. Full code. Visit type - Emergency Visit Emergency Visit: Yes ED Registration Date: 04/21/19 Care time: The patient presented to the Emergency Department on the above date and was hospitalized for further evaluation of their emergent condition. - New Patient This patient is new to me today: Yes Date on this admission: 04/24/19 - Critical Care Critical Care patient: No Jocelyne Dang, MIN: This documentation has been prepared by the Kannan tracey Maria, SCRIBE, under my direction and personally reviewed by me in its entirety. I confirm that the documentation accurately reflects all work, treatment, procedures, and medical decision making performed by me.
[2019-04-25] MEDS: POTASSIUM CHLORIDE TABS 20 MEQ TABLET.ER (FP) PO SCH (01:54)
[2019-04-25] MEDS: INSULIN SLIDING SCALE (NOVOLOG) 1 VIAL SQ SCH ×5 (01:54→21:31)
[2019-04-25] MEDS: LEVOTHYROXINE NA 88 MCG TABLET (FP) PO SCH (06:09)
[2019-04-25] MEDS ORDERED: sitaGLIPtin PHOSPHATE 50 MG TABLET PO SCH (07:00)
[2019-04-25 07:45] LABS: BASO % 0.5 % (0-2.0); EOS % 1.4 % (0-4.5); MONO % 6.4 % (3.8-10.2); WHITE BLOOD COUNT 7.7 K/mm3 (4.0-10.8)
[2019-04-25 07:48] LABS: ALBUMIN 2.8 g/dl (3.4-5.0); CALCIUM 8.3 mg/dl (8.5-10); MAGNESIUM 1.8 mg/dL (1.8-2.4); POTASSIUM 3.9 mmol/L (3.5-5.1); TOT PROT 5.3 g/dl (6.4-8.2)
[2019-04-25 07:50] LABS: HEMATOCRIT 36.8 % (32.4-45.2); HEMOGLOBIN 11.5 GM/dl (10.7-15.3); LYMPH % 17.5 % (8-40); MCH 25.5 pg (25.7-33.7); MCHC 31.3 g/dl (32.0-36.0); MEAN CELL VOLUME 81.7 fl (80-96); MEAN PLT VOLUME 9.4 fl (7.5-11.1); NEUT % 74.2 % (42.8-82.8); PLATELET COUNT 227 K/MM3 (134-434); RDW 15.2 % (11.6-15.6)
[2019-04-25] MEDS: SPIRONOLACTONE 25 MG TABLET (FP) PO SCH (09:12)
[2019-04-25] MEDS: SACUBITRIL/VALSARTAN 24 MG-26 MG TABLET PO SCH ×2 (09:12→21:32)
[2019-04-25] MEDS: ENOXAPARIN NA (PORCINE) 40 MG/0.4 ML DISP.SYRIN SQ SCH (09:12)
[2019-04-25] MEDS: CARVEDILOL 3.125 MG TABLET (FP) PO SCH ×2 (09:12→21:32)
[2019-04-25] MEDS: ASPIRIN 81 MG CHEWABLE TABLETS PO SCH (09:12)
[2019-04-25] MEDS ORDERED: PATIENT'S OWN MEDICATION (NON-FORMULARY) (Valsartan [Valsartan] 320 MG) PO SCH (10:00)
[2019-04-25] MEDS ORDERED: MAGNESIUM 1GM/D5W - 1 GM/100 ML IVPB IVPB ONE (12:30)
[2019-04-25 13:53] VITALS: BMI 24.4
--- NOTE | 2019-04-25 15:14 | EKG ---
Test Reason : Blood Pressure : / mmHG Vent. Rate : 103 BPM Atrial Rate : 103 BPM P-R Int : 216 ms QRS Dur : 168 ms QT Int : 384 ms P-R-T Axes : 000 037 253 degrees QTc Int : 503 ms SINUS TACHYCARDIA WITH 1ST DEGREE A-V BLOCK LEFT BUNDLE BRANCH BLOCK ABNORMAL ECG WHEN COMPARED WITH ECG OF 22-APR-2019 17:05, DE INTERVAL HAS INCREASED Confirmed by MARIANA TUCKER MD ([id number]) on 04/25/2019 3:14:08 PM Referred By: ARMANDO LYONS Confirmed By:MARIANA TUCKER MD
--- NOTE | 2019-04-25 17:04 | DS ---
Documentation entered by Zari Brunner SCRIBE, acting as scribe for Jocelyne Dang NP. Physical Exam: SUBJECTIVE: Patient seen and examined OBJECTIVE: Vital Signs Period Temp Pulse Resp BP Sys/Patel Pulse Ox Last 24 Hr 98.1 F-98.7 F 57-100 18-20 104-157/44-76 96-100 PHYSICAL EXAM GENERAL: The patient is awake, alert, and fully oriented. Speaks in full sentences. In no acute distress. LUNGS: Basilar crackles. HEART: Regular rate and rhythm, S1, S2 ABDOMEN: Soft, nontender, nondistended edema. NEUROLOGICAL: Cranial nerves II through XII grossly intact. Normal speech, gait not observed. PSYCH: Normal mood, normal affect. SKIN: Warm, dry, normal turgor LABS Laboratory Results - last 24 hr 04/24/19 04/24/19 04/24/19 07:15 07:20 07:20 WBC 7.8 RBC 4.18 Hgb 10.6 L Hct 34.0 MCV 81.4 MCH 25.5 L MCHC 31.3 L RDW 15.0 Plt Count 198 MPV 9.1 Absolute Neuts (auto) 5.9 Neutrophils % 75.8 Lymphocytes % 15.4 Monocytes % 5.9 Eosinophils % 2.3 Basophils % 0.6 Sodium 134 L Potassium 3.0 L Chloride 100 Carbon Dioxide 27 Anion Gap 7 L BUN 22.0 H Creatinine 1.0 Est GFR (CKD-EPI)AfAm 60.76 Est GFR (CKD-EPI)NonAf 52.42 POC Glucometer Random Glucose 124 H Calcium 8.1 L Phosphorus 4.0 Magnesium 1.5 L Total Bilirubin 1.2 H AST 22 ALT 13 Alkaline Phosphatase 58 Troponin I B-Natriuretic Peptide 13583.9 H Total Protein 5.6 L Albumin 2.9 L Free T4 1.46 04/24/19 04/24/19 04/24/19 11:26 16:14 19:15 WBC RBC Hgb Hct MCV MCH MCHC RDW Plt Count MPV Absolute Neuts (auto) Neutrophils % Lymphocytes % Monocytes % Eosinophils % Basophils % Sodium 140 Potassium 3.0 L Chloride 101 Carbon Dioxide 30 Anion Gap 9 BUN 22.0 H Creatinine 1.1 Est GFR (CKD-EPI)AfAm 54.15 Est GFR (CKD-EPI)NonAf 46.72 POC Glucometer 120 162 Random Glucose 76 Calcium 8.5 Phosphorus Magnesium 1.5 L Total Bilirubin AST ALT Alkaline Phosphatase Troponin I B-Natriuretic Peptide Total Protein Albumin Free T4 04/24/19 04/25/19 04/25/19 19:15 00:44 03:00 WBC RBC Hgb Hct MCV MCH MCHC RDW Plt Count MPV Absolute Neuts (auto) Neutrophils % Lymphocytes % Monocytes % Eosinophils % Basophils % Sodium Potassium Chloride Carbon Dioxide Anion Gap BUN Creatinine Est GFR (CKD-EPI)AfAm Est GFR (CKD-EPI)NonAf POC Glucometer 113 Random Glucose Calcium Phosphorus Magnesium Total Bilirubin AST ALT Alkaline Phosphatase Troponin I 0.12 H Cancelled B-Natriuretic Peptide Total Protein Albumin Free T4 04/25/19 04/25/19 04/25/19 03:00 05:51 06:53 WBC RBC Hgb Hct MCV MCH MCHC RDW Plt Count MPV Absolute Neuts (auto) Neutrophils % Lymphocytes % Monocytes % Eosinophils % Basophils % Sodium Potassium Chloride Carbon Dioxide Anion Gap BUN Creatinine Est GFR (CKD-EPI)AfAm Est GFR (CKD-EPI)NonAf POC Glucometer 134 Random Glucose Calcium Phosphorus Magnesium Total Bilirubin AST ALT Alkaline Phosphatase Troponin I 0.13 H 0.09 H B-Natriuretic Peptide Total Protein Albumin Free T4 04/25/19 04/25/19 06:53 06:53 WBC 7.7 RBC 4.50 Hgb 11.5 Hct 36.8 MCV 81.7 MCH 25.5 L MCHC 31.3 L RDW 15.2 Plt Count 227 MPV 9.4 Absolute Neuts (auto) 5.7 Neutrophils % 74.2 Lymphocytes % 17.5 Monocytes % 6.4 Eosinophils % 1.4 Basophils % 0.5 Sodium 140 Potassium 3.9 Chloride 100 Carbon Dioxide 30 Anion Gap 10 BUN 22.0 H Creatinine 1.0 Est GFR (CKD-EPI)AfAm 60.76 Est GFR (CKD-EPI)NonAf 52.42 POC Glucometer Random Glucose 146 H Calcium 8.3 L Phosphorus Magnesium 1.8 Total Bilirubin 1.0 AST 19 ALT 12 L Alkaline Phosphatase 55 Troponin I B-Natriuretic Peptide Total Protein 5.3 L Albumin 2.8 L Free T4 HOSPITAL COURSE: Date of Admission:04/21/19 Date of Discharge: 04/25/19 Pre-Hospital Course Melany Light is an 83 year old female with a past medical history of CAD (s/ p CABG), HTN, DM, osteoporosis who presents to the ED with respiratory difficulty and weakness. Patient was at her PCP one week prior and diagnosed with PNA outpatient and started on amoxicillin 500mg bid that she has been taking since. Over the last 2-3 days the patient noted that she had been having poor appetite, decreased fluid intake, increased leg swelling, orthopnea , increased lower extremity weakness, lightheadedness, and some abdominal pain with nausea and vomiting, and continued loose stools. This morning, the patient noted that she woke up and felt very weak and was unable to stand up so she slid to the floor. She denies any prodromal symptoms of chest pain, diaphoresis , palpitations, lightheadedness prior to the episode and denied a head hit but does not recall many events after. The daughter, who was at bedside during this interview, noted that the patient was unable to be reached by phone and so she came to the house where she found the patient unconscious next to the bed. Daughter stated that it took several minutes for the patient to wake up and in the meantime EMS was contacted. During the interview, the patient notes that she feels better but continues to have some difficulty breathing, orthopnea, lightheadedness, lower extremity weakness, some abdominal pain, mild nausea, continued diarrhea. Denies chest pain, palpitations, fevers, chills, diaphoresis, dysuria, hematuria, hemtochezia , focal weakness, numbness, tingling, visual changes, difficulty swallowing. ED Course (1) HR 107-111 (2) BNP 43294.5, troponins 0.13 (3) CXR with blunted angles, and questionable infiltratate (4) EKG with sinus tachycardia, LBBB, QTc 554, no prior EKG for comparison (5) Head CT Subsequent Hospital Course 83 year-old female with a PMH significant for HTN, CAD s/p CABG, systolic heart failure, Type II IDDM, and hypothyrodism, admitted for acute on chronic systolic heart failure in the setting of recent pneumonia diagnosis. Severe acute on chronic systolic heart failure --04/23 Echo: LV function severely reduced, global LV hypokinesis, EF 30%, septal dyskinesis, severe global hypokinesis of LV; RV normal; mild MR; mild to moderate TR; mild pericardial effusion --BNP 16,772, mild congestion and bilateral pleural effusions R>L on initial CT --continued Entresto, carvedilol Coronary artery disease s/p CABG --stress MIBI 03/2019 no ischemia, fixed areas suggestive of old infarct --troponins peaked 0.31, down trending; seen and evaluated by cardiology, doubt ACS; demand stressors: acute CHF, tachycardia, recent pneumonia, uncontrolled HTN, renal dysfunction --continue ASA, statin, carvedilol Hypertension --continued Entresto, carvedilol Type II IDDM --Novolog sliding scale coverage --Levemir; recalculate needs in am Hypothyoridism --continued levothyroxine Minutes to complete discharge: 35 Discharge Summary Problems reviewed: Yes Reason For Visit: WEAKNESS/ACUTE ON CHRONIC CONGESTIVE HEART FAILURE Current Active Problems Acute on chronic systolic CHF (congestive heart failure) (Acute) CAD (coronary artery disease) (Acute) CHF exacerbation (Acute) Dementia (Acute) Diabetes mellitus type 2, uncontrolled (Acute) Elevated troponin (Acute) Hypothyroidism, unspecified (Acute) Pneumonia (Acute) Renal dysfunction (Acute) Condition: Improved - Instructions Referrals: Paul Alves MD [Primary Care Provider] - Disposition: [facility] F[facility]ILITY - Home Medications Comprehensive Discharge Medication List: Ambulatory Orders Aspirin [Aspirin EC] 325 mg PO DAILY 04/22/19 Atorvastatin Ca [Lipitor] 40 mg PO HS 04/22/19 Insulin Glargine,Hum.rec.anlog [Basaglar Kwikpen U-100] 20 unit SQ DAILY Levothyroxine Sodium [Synthroid] 88 mcg PO DAILY 04/22/19 Metformin HCl [Glucophage] 1,000 mg PO BID 04/22/19 Valsartan 320 mg PO DAILY 04/22/19 This patient is new to me today: No Emergency Visit: No Critical Care patient: No - Discharge Referral Referred to [facility] Med P.C.: No Jocelyne Dang NP: This documentation has been prepared by the Kannan tracey Maria, SCRIBE, under my direction and personally reviewed by me in its entirety. I confirm that the documentation accurately reflects all work, treatment, procedures, and medical decision making performed by me.
[2019-04-25] MEDS ORDERED: ACETAMINOPHEN 325 MG TABLET (FP) PO ONE (19:45)
[2019-04-25] MEDS ORDERED: ATORVASTATIN CA 40 MG TABLET (FP) PO SCH (22:00)
[2019-04-26 05:44] VITALS: BP 111/63; PULSE 94; TEMP 98.4
[2019-04-26] MEDS: INSULIN SLIDING SCALE (NOVOLOG) 1 VIAL SQ SCH ×2 (06:14→11:05)
[2019-04-26] MEDS: LEVOTHYROXINE NA 88 MCG TABLET (FP) PO SCH (06:31)
[2019-04-26] MEDS: INSULIN (LEVEMIR) 100 UNITS/ML UNITS SQ SCH (06:31)
[2019-04-26 07:53] LABS: CALCIUM 8.1 mg/dl (8.5-10); MAGNESIUM 1.9 mg/dL (1.8-2.4); PHOSPHOROUS 3.6 mg/dl (2.5-4.9); POTASSIUM 3.9 mmol/L (3.5-5.1)
[2019-04-26] MEDS ORDERED: FUROSEMIDE 40 MG/4 ML INJECTABLE VIAL IVPUSH SCH (10:00)
[2019-04-26] MEDS: SPIRONOLACTONE 25 MG TABLET (FP) PO SCH (10:16)
[2019-04-26] MEDS: ASPIRIN 81 MG CHEWABLE TABLETS PO SCH (10:16)
[2019-04-26] MEDS: SACUBITRIL/VALSARTAN 24 MG-26 MG TABLET PO SCH (10:16)
[2019-04-26] MEDS: CARVEDILOL 3.125 MG TABLET (FP) PO SCH (10:16)
[2019-04-26] MEDS: ENOXAPARIN NA (PORCINE) 40 MG/0.4 ML DISP.SYRIN SQ SCH (10:17)
== END 2019-04-26 15:39 | DRG 291 ==
LOC: JER 14:59 → JERBED 18:48 → OBSVTOIN 20:05 → FM/S 04-23 12:11
PROVIDERS: ADMIT Internal Medicine; ATTEND Nurse Practitioner Acute Care
DX: I11.0 Hypertensive heart disease with heart failure (principal); J18.9 Pneumonia, unspecified organism; I24.8 Other forms of acute ischemic heart disease; J98.11 Atelectasis; E46 Unspecified protein-calorie malnutrition; J90 Pleural effusion, not elsewhere classified; F03.90 Unspecified dementia, unspecified severity, without behavioral disturbance, psychotic disturbance, mood disturbance, and anxiety; I25.10 Atherosclerotic heart disease of native coronary artery without angina pectoris; I50.43 Acute on chronic combined systolic (congestive) and diastolic (congestive) heart failure; E11.9 Type 2 diabetes mellitus without complications; E88.09 Other disorders of plasma-protein metabolism, not elsewhere classified; E11.65 Type 2 diabetes mellitus with hyperglycemia; I44.7 Left bundle-branch block, unspecified; R94.31 Abnormal electrocardiogram [ECG] [EKG]; M81.0 Age-related osteoporosis without current pathological fracture; R19.7 Diarrhea, unspecified; E03.9 Hypothyroidism, unspecified; E87.6 Hypokalemia; N28.9 Disorder of kidney and ureter, unspecified; Z95.1 Presence of aortocoronary bypass graft
CPT/HCPCS: 36415; 70450-TC; 71045-TC-FY; 71250-TC; 80048; 80053; 80061; 81003; 82550; 82553; 82803; 82962; 83036; 83605; 83721; 83735; 83880; 84100; 84439; 84443; 84484; 85025; 85610; 85730; 86376; 87040; 87086; 87633; 87804; 93005; 93010; 93306-TC; 93880-TC; 97116-GP; 97162-GP; 99285-25; G0378; J7030

== ENCOUNTER 2020-05-15 18:06 | Inpatient (IN) | payer OTHER ==
[2020-05-15] MEDS ORDERED: guaiFENesin 200 MG/10 ML 10 ML UNIT-DOSE CUPS PO ONE (19:26)
[2020-05-15 19:39] LABS: BASO % 0.3 % (0-2.0); HEMATOCRIT 32.9 % (32.4-45.2); HEMOGLOBIN 11.1 GM/dL (10.7-15.3); LYMPH % 19.5 % (8-40); MCH 30.2 pg (25.7-33.7); MCHC 33.8 g/dl (32.0-36.0); MEAN CELL VOLUME 89.3 fl (80-96); MEAN PLT VOLUME 9.8 fl (7.5-11.1); MONO % 9.2 % (3.8-10.2); PLATELET COUNT 93 K/MM3 (134-434); RBC 3.68 M/mm3 (3.60-5.2); RDW 13.5 % (11.6-15.6); WHITE BLOOD COUNT 4.1 K/mm3 (4.0-10.0)
[2020-05-15] MEDS ORDERED: guaiFENesin/D-METHORPHAN HB 10 ML UNIT-DOSE CUPS ONE (19:44)
[2020-05-15 20:14] LABS: POTASSIUM 4.9 mmol/L (3.5-5.1)
[2020-05-15 20:16] LABS: CALCIUM 8.2 mg/dL (8.5-10.1)
[2020-05-15 20:17] LABS: ALBUMIN 3.2 g/dl (3.4-5.0); BLOOD UREA NITROGEN 29.5 mg/dL (7-18)
[2020-05-15 20:20] LABS: CREATININE 1.2 mg/dL (0.55-1.3)
[2020-05-15 20:21] LABS: BILIRUBIN,TOTAL 0.5 mg/dL (0.2-1); TOT PROT 6.4 g/dl (6.4-8.2)
[2020-05-15 20:25] LABS: N-TERMINAL BNP 3305.2 pg/ml (5-450)
[2020-05-15] MEDS ORDERED: AZITHROMYCIN IVPB 500 MG in DEXTROSE 5%-WATER - 250 ML IVPB ONE (21:11)
[2020-05-15] MEDS ORDERED: CEFTRIAXONE 1 GM in DEXTROSE 5%-WATER - 100 ML IVPB ONE (21:11)
[2020-05-15] MEDS ORDERED: DEXAMETHASONE SOD PHOSPHATE 10 MG/1 ML VIAL IVPUSH ONE (22:13)
[2020-05-15] MEDS ORDERED: DEXAMETHASONE SOD PHOSPHATE 10 MG/1 ML VIAL ONE (22:40)
[2020-05-15 23:19] LABS: BILIRUBIN,DIRECT 0.3 mg/dL (0.0-0.2)
[2020-05-16] MEDS ORDERED: FUROSEMIDE 40 MG/4 ML INJECTABLE VIAL IVPUSH ONE (00:03)
[2020-05-16] MEDS: LEVOTHYROXINE NA 88 MCG TABLET (FP) PO SCH (06:04)
[2020-05-16] MEDS: INSULIN SLIDING SCALE (NOVOLOG) 1 VIAL SQ SCH ×4 (06:04→21:38)
[2020-05-16] MEDS ORDERED: SACUBITRIL/VALSARTAN 24 MG-26 MG TABLET PO SCH (10:00)
[2020-05-16] MEDS ORDERED: FUROSEMIDE 20 MG TABLET (FP) PO SCH (10:00)
[2020-05-16] MEDS: HEPARIN NA (PORCINE) 5,000 UNITS/ML 1ML VIAL SQ SCH ×2 (10:19→21:38)
[2020-05-16] MEDS: CHOLECALCIFEROL (VIT D3) 1,000 UNIT (25 MCG) TABLET PO SCH (10:20)
[2020-05-16] MEDS: ASPIRIN 81 MG CHEWABLE TABLETS PO SCH (10:20)
[2020-05-16] MEDS: ZINC SULFATE 220 MG CAPSULE (FP) PO SCH (10:20)
[2020-05-16] MEDS: ASCORBIC ACID 500 MG TABLET (FP) PO SCH (10:21)
[2020-05-16] MEDS: CARVEDILOL 3.125 MG TABLET (FP) PO SCH ×2 (10:22→21:38)
[2020-05-16] MEDS: SPIRONOLACTONE 25 MG TABLET PO SCH (10:22)
[2020-05-16] MEDS: DEXAMETHASONE 4 MG TABLET (FP) PO SCH (12:42)
[2020-05-16 12:53] LABS: BASO % 0.3 % (0-2.0); HEMATOCRIT 34.6 % (32.4-45.2); HEMOGLOBIN 11.9 GM/dL (10.7-15.3); LYMPH % 16.9 % (8-40); MCH 30.5 pg (25.7-33.7); MCHC 34.4 g/dl (32.0-36.0); MEAN CELL VOLUME 88.5 fl (80-96); MONO % 7.6 % (3.8-10.2); NEUT % 75.2 % (42.8-82.8); PLATELET COUNT 99 K/MM3 (134-434); RBC 3.91 M/mm3 (3.60-5.2); RDW 13.6 % (11.6-15.6); WHITE BLOOD COUNT 2.5 K/mm3 (4.0-10.0)
[2020-05-16] MEDS: DOXYCYCLINE INJECTION 100 MG in DEXTROSE 5%-WATER - 100 ML IVPB SCH ×2 (13:00→21:38)
[2020-05-16] MEDS: CEFTRIAXONE 1 GM in DEXTROSE 5%-WATER - 50 ML IVPB SCH (13:00)
[2020-05-16 13:12] LABS: POTASSIUM 4.3 mmol/L (3.5-5.1)
[2020-05-16 13:25] LABS: ALBUMIN 3.3 g/dl (3.4-5.0)
[2020-05-16 13:26] LABS: BLOOD UREA NITROGEN 39.5 mg/dL (7-18); MAGNESIUM 1.7 mg/dL (1.8-2.4)
[2020-05-16 13:27] LABS: BILIRUBIN,TOTAL 0.5 mg/dL (0.2-1); TOT PROT 7.1 g/dl (6.4-8.2)
[2020-05-16 13:29] LABS: CALCIUM 8.5 mg/dL (8.5-10.1); CREATININE 1.7 mg/dL (0.55-1.3); PHOSPHOROUS 4.6 mg/dL (2.5-4.9)
[2020-05-16] MEDS ORDERED: MAGNESIUM SULF 50% (8.12 MEQ/2 ML-1 GM VIAL) IVPB ONE (19:45)
[2020-05-16] MEDS: ATORVASTATIN CA 40 MG TABLET (FP) PO SCH (21:38)
[2020-05-17] MEDS: LEVOTHYROXINE NA 88 MCG TABLET (FP) PO SCH (06:15)
[2020-05-17] MEDS: INSULIN SLIDING SCALE (NOVOLOG) 1 VIAL SQ SCH ×4 (06:15→22:10)
[2020-05-17] MEDS: CEFTRIAXONE 1 GM in DEXTROSE 5%-WATER - 50 ML IVPB SCH (09:30)
[2020-05-17] MEDS: DEXAMETHASONE 4 MG TABLET (FP) PO SCH (09:34)
[2020-05-17] MEDS: CARVEDILOL 3.125 MG TABLET (FP) PO SCH ×2 (09:34→22:03)
[2020-05-17] MEDS: SPIRONOLACTONE 25 MG TABLET PO SCH (09:34)
[2020-05-17] MEDS: HEPARIN NA (PORCINE) 5,000 UNITS/ML 1ML VIAL SQ SCH ×2 (09:34→21:59)
[2020-05-17] MEDS: CHOLECALCIFEROL (VIT D3) 1,000 UNIT (25 MCG) TABLET PO SCH (09:35)
[2020-05-17] MEDS: ASCORBIC ACID 500 MG TABLET (FP) PO SCH (09:35)
[2020-05-17] MEDS: ZINC SULFATE 220 MG CAPSULE (FP) PO SCH (09:35)
[2020-05-17] MEDS: ASPIRIN 81 MG CHEWABLE TABLETS PO SCH (09:36)
[2020-05-17] MEDS: DOXYCYCLINE INJECTION 100 MG in DEXTROSE 5%-WATER - 100 ML IVPB SCH (11:08)
[2020-05-17] MEDS: ATORVASTATIN CA 40 MG TABLET (FP) PO SCH (21:59)
[2020-05-18] MEDS: LEVOTHYROXINE NA 88 MCG TABLET (FP) PO SCH (06:09)
[2020-05-18] MEDS: INSULIN SLIDING SCALE (NOVOLOG) 1 VIAL SQ SCH ×4 (06:17→21:58)
[2020-05-18 08:56] LABS: HEMATOCRIT 32.8 % (32.4-45.2); HEMOGLOBIN 11.4 GM/dL (10.7-15.3); LYMPH % 9.1 % (8-40); MCH 30.3 pg (25.7-33.7); MCHC 34.8 g/dl (32.0-36.0); MEAN CELL VOLUME 86.9 fl (80-96); MEAN PLT VOLUME 10.3 fl (7.5-11.1); MONO % 6.3 % (3.8-10.2); NEUT % 84.6 % (42.8-82.8); PLATELET COUNT 153 K/MM3 (134-434); RBC 3.77 M/mm3 (3.60-5.2); RDW 13.3 % (11.6-15.6); WHITE BLOOD COUNT 7.2 K/mm3 (4.0-10.0)
[2020-05-18 09:34] LABS: POTASSIUM 4.6 mmol/L (3.5-5.1)
[2020-05-18 09:36] LABS: CALCIUM 8.7 mg/dL (8.5-10.1)
[2020-05-18 09:37] LABS: ALBUMIN 3.1 g/dl (3.4-5.0); MAGNESIUM 2.3 mg/dL (1.8-2.4)
[2020-05-18 09:39] LABS: CREATININE 4.4 mg/dL (0.55-1.3)
[2020-05-18] MEDS: DEXAMETHASONE 4 MG TABLET (FP) PO SCH (09:40)
[2020-05-18] MEDS: CARVEDILOL 3.125 MG TABLET (FP) PO SCH ×2 (09:40→21:57)
[2020-05-18] MEDS: SPIRONOLACTONE 25 MG TABLET PO SCH (09:40)
[2020-05-18] MEDS: HEPARIN NA (PORCINE) 5,000 UNITS/ML 1ML VIAL SQ SCH ×2 (09:41→21:57)
[2020-05-18 09:42] LABS: BILIRUBIN,TOTAL 0.7 mg/dL (0.2-1); TOT PROT 6.6 g/dl (6.4-8.2)
[2020-05-18] MEDS: ASCORBIC ACID 500 MG TABLET (FP) PO SCH (09:42)
[2020-05-18] MEDS: ZINC SULFATE 220 MG CAPSULE (FP) PO SCH (09:42)
[2020-05-18] MEDS: ASPIRIN 81 MG CHEWABLE TABLETS PO SCH (09:42)
[2020-05-18] MEDS: CHOLECALCIFEROL (VIT D3) 1,000 UNIT (25 MCG) TABLET PO SCH (09:42)
[2020-05-18 09:47] LABS: BLOOD UREA NITROGEN 72.8 mg/dL (7-18)
[2020-05-18] MEDS ORDERED: SODIUM CHLORIDE 250 ML IV STA (15:11)
[2020-05-18 16:29] LABS: EPI CELLS >36 /uL (0-25.1); HYALINE CASTS 17 /uL (0-3.1); URINE APPEARANCE CLOUDY; URINE BACTERIA 131 /uL (0-1359); URINE BILIRUBIN NEGATIVE (NEGATIVE); URINE COLOR YELLOW; URINE GLUCOSE (UA) NEGATIVE (NEGATIVE); URINE KETONE TRACE (NEGATIVE); URINE LEUK ESTERASE 2+ (NEGATIVE); URINE NITRITE NEGATIVE (NEGATIVE); URINE PROTEIN TRACE (NEGATIVE); URINE UROBILINOGEN 0.2 mg/dL (0.2-1.0); URINE WBC 240 /uL (0-25.8)
[2020-05-18 17:35] LABS: URINE RBC 80.9 /uL (0-23.9)
[2020-05-18] MEDS: ATORVASTATIN CA 40 MG TABLET (FP) PO SCH (21:57)
[2020-05-18] MEDS: INSULIN (LEVEMIR) 100 UNITS/ML UNITS SQ SCH (21:57)
[2020-05-19] MEDS: INSULIN SLIDING SCALE (NOVOLOG) 1 VIAL SQ SCH ×4 (06:24→22:09)
[2020-05-19] MEDS: LEVOTHYROXINE NA 88 MCG TABLET (FP) PO SCH (06:25)
[2020-05-19 09:09] LABS: BASO % 0.1 % (0-2.0); HEMATOCRIT 31.4 % (32.4-45.2); HEMOGLOBIN 11.1 GM/dL (10.7-15.3); LYMPH % 11.1 % (8-40); MCH 30.1 pg (25.7-33.7); MCHC 35.5 g/dl (32.0-36.0); MEAN CELL VOLUME 84.9 fl (80-96); MEAN PLT VOLUME 9.8 fl (7.5-11.1); MONO % 7.4 % (3.8-10.2); NEUT % 81.4 % (42.8-82.8); PLATELET COUNT 174 K/MM3 (134-434); RDW 13.3 % (11.6-15.6)
[2020-05-19 09:25] LABS: POTASSIUM 5.2 mmol/L (3.5-5.1)
[2020-05-19 10:05] LABS: BILIRUBIN,TOTAL 0.4 mg/dL (0.2-1)
[2020-05-19 10:07] LABS: CALCIUM 8.1 mg/dL (8.5-10.1)
[2020-05-19 10:08] LABS: ALBUMIN 3.1 g/dl (3.4-5.0)
[2020-05-19 10:09] LABS: TOT PROT 6.1 g/dl (6.4-8.2)
[2020-05-19 10:14] LABS: CREATININE 5.9 mg/dL (0.55-1.3)
[2020-05-19 10:18] LABS: BLOOD UREA NITROGEN 97.9 mg/dL (7-18)
[2020-05-19] MEDS: HEPARIN NA (PORCINE) 5,000 UNITS/ML 1ML VIAL SQ SCH ×2 (10:30→22:08)
[2020-05-19] MEDS: ZINC SULFATE 220 MG CAPSULE (FP) PO SCH (10:30)
[2020-05-19] MEDS: DEXAMETHASONE 4 MG TABLET (FP) PO SCH (10:30)
[2020-05-19] MEDS: ASCORBIC ACID 500 MG TABLET (FP) PO SCH (10:31)
[2020-05-19] MEDS: CHOLECALCIFEROL (VIT D3) 1,000 UNIT (25 MCG) TABLET PO SCH (10:31)
[2020-05-19] MEDS: ASPIRIN 81 MG CHEWABLE TABLETS PO SCH (10:31)
[2020-05-19] MEDS: CARVEDILOL 3.125 MG TABLET (FP) PO SCH ×2 (10:31→22:09)
[2020-05-19] MEDS: SODIUM CHLORIDE 1,000 ML IV SCH (12:15)
[2020-05-19] MEDS ORDERED: SODIUM ZIRCONIUM CYCLOSILICATE (LOKELMA) 5 GM PACKET PO ONE (15:37)
[2020-05-19] MEDS: BANATROL PLUS POWDER PACKET PO SCH ×2 (16:07→22:07)
[2020-05-19] MEDS: FAMOTIDINE 20 MG TABLET PO SCH (16:09)
[2020-05-19] MEDS: SODIUM BICARBONATE 8.4% 50 MEQ/50 ML DISP.SYRIN IV SCH ×2 (17:01→21:10)
[2020-05-19] MEDS: ATORVASTATIN CA 40 MG TABLET (FP) PO SCH (22:08)
[2020-05-19] MEDS: INSULIN (LEVEMIR) 100 UNITS/ML UNITS SQ SCH (22:09)
[2020-05-20] MEDS: BANATROL PLUS POWDER PACKET PO SCH ×3 (06:15→22:46)
[2020-05-20] MEDS: INSULIN SLIDING SCALE (NOVOLOG) 1 VIAL SQ SCH ×4 (06:15→22:47)
[2020-05-20] MEDS: LEVOTHYROXINE NA 88 MCG TABLET (FP) PO SCH (06:16)
[2020-05-20] MEDS: ASPIRIN 81 MG CHEWABLE TABLETS PO SCH (10:19)
[2020-05-20] MEDS: ASCORBIC ACID 500 MG TABLET (FP) PO SCH (10:20)
[2020-05-20] MEDS: DEXAMETHASONE 4 MG TABLET (FP) PO SCH (10:20)
[2020-05-20] MEDS: CARVEDILOL 3.125 MG TABLET (FP) PO SCH ×2 (10:21→22:46)
[2020-05-20] MEDS: FAMOTIDINE 20 MG TABLET PO SCH (10:21)
[2020-05-20] MEDS: ZINC SULFATE 220 MG CAPSULE (FP) PO SCH (10:21)
[2020-05-20] MEDS: HEPARIN NA (PORCINE) 5,000 UNITS/ML 1ML VIAL SQ SCH ×2 (10:21→22:46)
[2020-05-20] MEDS: CHOLECALCIFEROL (VIT D3) 1,000 UNIT (25 MCG) TABLET PO SCH (10:22)
[2020-05-20] MEDS ORDERED: ONDANSETRON *ODT* 4 MG TABLET SL PRN (11:52)
[2020-05-20 13:46] LABS: POTASSIUM 3.9 mmol/L (3.5-5.1)
[2020-05-20 13:48] LABS: ALBUMIN 2.4 g/dl (3.4-5.0)
[2020-05-20 13:49] LABS: BLOOD UREA NITROGEN 102.6 mg/dL (7-18)
[2020-05-20 13:52] LABS: CREATININE 6.1 mg/dL (0.55-1.3)
[2020-05-20 13:53] LABS: BILIRUBIN,TOTAL 0.3 mg/dL (0.2-1); TOT PROT 4.9 g/dl (6.4-8.2)
[2020-05-20] MEDS: SODIUM CHLORIDE 1,000 ML IV SCH (15:54)
[2020-05-20] MEDS: INSULIN (LEVEMIR) 100 UNITS/ML UNITS SQ SCH (22:46)
[2020-05-20] MEDS: ATORVASTATIN CA 40 MG TABLET (FP) PO SCH (22:47)
[2020-05-21] MEDS: BANATROL PLUS POWDER PACKET PO SCH ×2 (06:25→13:43)
[2020-05-21] MEDS: INSULIN SLIDING SCALE (NOVOLOG) 1 VIAL SQ SCH ×4 (06:25→21:24)
[2020-05-21] MEDS: LEVOTHYROXINE NA 88 MCG TABLET (FP) PO SCH (06:25)
[2020-05-21] MEDS: ASPIRIN 81 MG CHEWABLE TABLETS PO SCH (10:29)
[2020-05-21] MEDS: DEXAMETHASONE 4 MG TABLET (FP) PO SCH (10:33)
[2020-05-21] MEDS: ZINC SULFATE 220 MG CAPSULE (FP) PO SCH (10:34)
[2020-05-21] MEDS: FAMOTIDINE 20 MG TABLET PO SCH (10:34)
[2020-05-21] MEDS: ASCORBIC ACID 500 MG TABLET (FP) PO SCH (10:35)
[2020-05-21] MEDS: HEPARIN NA (PORCINE) 5,000 UNITS/ML 1ML VIAL SQ SCH ×2 (10:36→21:21)
[2020-05-21] MEDS: CHOLECALCIFEROL (VIT D3) 1,000 UNIT (25 MCG) TABLET PO SCH (10:36)
[2020-05-21 11:29] LABS: HEMATOCRIT 27.3 % (32.4-45.2); HEMOGLOBIN 9.5 GM/dL (10.7-15.3); MCH 29.9 pg (25.7-33.7); MCHC 34.6 g/dl (32.0-36.0); MEAN CELL VOLUME 86.5 fl (80-96); MEAN PLT VOLUME 9.4 fl (7.5-11.1); PLATELET COUNT 137 K/MM3 (134-434); RBC 3.16 M/mm3 (3.60-5.2); RDW 13.5 % (11.6-15.6); WHITE BLOOD COUNT 5.5 K/mm3 (4.0-10.0)
[2020-05-21] MEDS: CARVEDILOL 3.125 MG TABLET (FP) PO SCH ×2 (12:00→21:22)
[2020-05-21 12:06] LABS: ALBUMIN 2.3 g/dl (3.4-5.0)
[2020-05-21 12:09] LABS: CREATININE 6.4 mg/dL (0.55-1.3)
[2020-05-21 12:10] LABS: BILIRUBIN,TOTAL 0.3 mg/dL (0.2-1); TOT PROT 4.8 g/dl (6.4-8.2)
[2020-05-21 12:26] LABS: BLOOD UREA NITROGEN 111.8 mg/dL (7-18); CALCIUM 6.6 mg/dL (8.5-10.1)
[2020-05-21] MEDS: SODIUM CHLORIDE 1,000 ML IV SCH ×3 (12:41→21:23)
[2020-05-21] MEDS ORDERED: CALCIUM GLUCONATE 10% - 1,000 MG/10 ML VIAL IVPB ONE (19:08)
[2020-05-21] MEDS: CALCIUM ACETATE 667 MG CAPSULE (FP) PO SCH (21:21)
[2020-05-21] MEDS: MIRTAZAPINE 15 MG TABLET (FP) PO SCH (21:22)
[2020-05-21] MEDS: ATORVASTATIN CA 40 MG TABLET (FP) PO SCH (21:22)
[2020-05-21] MEDS: SODIUM BICARBONATE 650 MG TABLET PO SCH (21:22)
[2020-05-21] MEDS: INSULIN (LEVEMIR) 100 UNITS/ML UNITS SQ SCH (21:23)
[2020-05-22] MEDS: LEVOTHYROXINE NA 88 MCG TABLET (FP) PO SCH (06:23)
[2020-05-22] MEDS: INSULIN SLIDING SCALE (NOVOLOG) 1 VIAL SQ SCH ×4 (06:23→21:06)
[2020-05-22 08:15] LABS: HEMATOCRIT 27.4 % (32.4-45.2); HEMOGLOBIN 9.7 GM/dL (10.7-15.3); MCH 30.6 pg (25.7-33.7); MCHC 35.6 g/dl (32.0-36.0); MEAN CELL VOLUME 85.9 fl (80-96); PLATELET COUNT 145 K/MM3 (134-434); RBC 3.18 M/mm3 (3.60-5.2); RDW 13.3 % (11.6-15.6); WHITE BLOOD COUNT 4.3 K/mm3 (4.0-10.0)
[2020-05-22 08:23] LABS: POTASSIUM 4.2 mmol/L (3.5-5.1)
[2020-05-22 08:38] LABS: ALBUMIN 2.2 g/dl (3.4-5.0); BLOOD UREA NITROGEN 102.6 mg/dL (7-18); CREATININE 5.6 mg/dL (0.55-1.3)
[2020-05-22 08:42] LABS: BILIRUBIN,TOTAL 0.3 mg/dL (0.2-1); TOT PROT 4.7 g/dl (6.4-8.2)
[2020-05-22 09:07] LABS: PHOSPHOROUS 8.6 mg/dL (2.5-4.9)
[2020-05-22] MEDS: CALCIUM ACETATE 667 MG CAPSULE (FP) PO SCH ×3 (09:07→16:32)
[2020-05-22 09:12] LABS: CALCIUM 6.7 mg/dL (8.5-10.1)
[2020-05-22] MEDS: SODIUM CHLORIDE 1,000 ML IV SCH ×2 (09:12→16:33)
[2020-05-22] MEDS: ASCORBIC ACID 500 MG TABLET (FP) PO SCH (09:13)
[2020-05-22] MEDS: CARVEDILOL 3.125 MG TABLET (FP) PO SCH ×2 (09:13→21:05)
[2020-05-22] MEDS: HEPARIN NA (PORCINE) 5,000 UNITS/ML 1ML VIAL SQ SCH ×2 (09:13→21:05)
[2020-05-22] MEDS: ASPIRIN 81 MG CHEWABLE TABLETS PO SCH (09:13)
[2020-05-22] MEDS: ZINC SULFATE 220 MG CAPSULE (FP) PO SCH (09:13)
[2020-05-22] MEDS: FAMOTIDINE 20 MG TABLET PO SCH (09:13)
[2020-05-22] MEDS: CHOLECALCIFEROL (VIT D3) 1,000 UNIT (25 MCG) TABLET PO SCH (09:14)
[2020-05-22] MEDS ORDERED: CALCIUM GLUCONATE 10% - 1,000 MG/10 ML VIAL IVPB ONE (10:15)
[2020-05-22] MEDS: DEXAMETHASONE 4 MG TABLET (FP) PO SCH (11:59)
[2020-05-22] MEDS: SODIUM BICARBONATE 650 MG TABLET PO SCH ×2 (12:00→21:06)
[2020-05-22] MEDS: INSULIN (LEVEMIR) 100 UNITS/ML UNITS SQ SCH (21:05)
[2020-05-22] MEDS: ATORVASTATIN CA 40 MG TABLET (FP) PO SCH (21:05)
[2020-05-22] MEDS: MIRTAZAPINE 15 MG TABLET (FP) PO SCH (21:07)
[2020-05-23] MEDS: LEVOTHYROXINE NA 88 MCG TABLET (FP) PO SCH (06:04)
[2020-05-23] MEDS: INSULIN SLIDING SCALE (NOVOLOG) 1 VIAL SQ SCH ×4 (06:06→21:48)
[2020-05-23] MEDS: CALCIUM ACETATE 667 MG CAPSULE (FP) PO SCH ×3 (09:53→17:35)
[2020-05-23] MEDS: ASPIRIN 81 MG CHEWABLE TABLETS PO SCH (09:53)
[2020-05-23] MEDS: ZINC SULFATE 220 MG CAPSULE (FP) PO SCH (09:54)
[2020-05-23] MEDS: CARVEDILOL 3.125 MG TABLET (FP) PO SCH ×2 (09:54→21:45)
[2020-05-23] MEDS: DEXAMETHASONE 4 MG TABLET (FP) PO SCH (09:54)
[2020-05-23] MEDS: ASCORBIC ACID 500 MG TABLET (FP) PO SCH (09:55)
[2020-05-23] MEDS: FAMOTIDINE 20 MG TABLET PO SCH (09:55)
[2020-05-23] MEDS: CHOLECALCIFEROL (VIT D3) 1,000 UNIT (25 MCG) TABLET PO SCH (09:55)
[2020-05-23] MEDS: SODIUM BICARBONATE 650 MG TABLET PO SCH ×2 (09:55→21:46)
[2020-05-23] MEDS: SODIUM CHLORIDE 1,000 ML IV SCH (17:28)
[2020-05-23 19:26] LABS: POTASSIUM 4.1 mmol/L (3.5-5.1)
[2020-05-23 19:30] LABS: BLOOD UREA NITROGEN 84.5 mg/dL (7-18)
[2020-05-23 19:32] LABS: CREATININE 4.3 mg/dL (0.55-1.3)
[2020-05-23] MEDS: INSULIN (LEVEMIR) 100 UNITS/ML UNITS SQ SCH (21:44)
[2020-05-23] MEDS: MIRTAZAPINE 15 MG TABLET (FP) PO SCH (21:46)
[2020-05-23] MEDS: ATORVASTATIN CA 40 MG TABLET (FP) PO SCH (21:47)
[2020-05-24] MEDS: LEVOTHYROXINE NA 88 MCG TABLET (FP) PO SCH (06:12)
[2020-05-24] MEDS: INSULIN SLIDING SCALE (NOVOLOG) 1 VIAL SQ SCH ×4 (06:12→21:06)
[2020-05-24] MEDS: ASPIRIN 81 MG CHEWABLE TABLETS PO SCH (09:18)
[2020-05-24] MEDS: CALCIUM ACETATE 667 MG CAPSULE (FP) PO SCH ×3 (09:18→17:53)
[2020-05-24] MEDS: ASCORBIC ACID 500 MG TABLET (FP) PO SCH (09:18)
[2020-05-24] MEDS: CHOLECALCIFEROL (VIT D3) 1,000 UNIT (25 MCG) TABLET PO SCH (09:19)
[2020-05-24] MEDS: DEXAMETHASONE 4 MG TABLET (FP) PO SCH (09:19)
[2020-05-24] MEDS: ZINC SULFATE 220 MG CAPSULE (FP) PO SCH (09:19)
[2020-05-24] MEDS: SODIUM BICARBONATE 650 MG TABLET PO SCH ×2 (09:19→21:05)
[2020-05-24] MEDS: CARVEDILOL 3.125 MG TABLET (FP) PO SCH ×2 (09:19→21:04)
[2020-05-24] MEDS: FAMOTIDINE 20 MG TABLET PO SCH (09:20)
[2020-05-24 13:00] LABS: POTASSIUM 3.6 mmol/L (3.5-5.1)
[2020-05-24 13:01] LABS: BASO % 0.1 % (0-2.0); EOS % 2.6 % (0-4.5); HEMATOCRIT 27.7 % (32.4-45.2); HEMOGLOBIN 9.6 GM/dL (10.7-15.3); LYMPH % 6.1 % (8-40); MCH 30.4 pg (25.7-33.7); MCHC 34.8 g/dl (32.0-36.0); MEAN CELL VOLUME 87.6 fl (80-96); MEAN PLT VOLUME 8.9 fl (7.5-11.1); NEUT % 81.2 % (42.8-82.8); PLATELET COUNT 167 K/MM3 (134-434); RBC 3.16 M/mm3 (3.60-5.2); RDW 13.6 % (11.6-15.6); WHITE BLOOD COUNT 6.6 K/mm3 (4.0-10.0)
[2020-05-24 13:08] LABS: BLOOD UREA NITROGEN 72.9 mg/dL (7-18); CALCIUM 7.1 mg/dL (8.5-10.1)
[2020-05-24 13:09] LABS: CREATININE 3.6 mg/dL (0.55-1.3)
[2020-05-24 13:10] LABS: TOT PROT 4.4 g/dl (6.4-8.2)
[2020-05-24 13:20] LABS: BILIRUBIN,TOTAL 0.4 mg/dL (0.2-1)
[2020-05-24] MEDS: SODIUM CHLORIDE 1,000 ML IV SCH (13:31)
[2020-05-24] MEDS ORDERED: SODIUM CHLORIDE 1,000 ML IV SCH (14:20)
[2020-05-24] MEDS: ATORVASTATIN CA 40 MG TABLET (FP) PO SCH (21:04)
[2020-05-24] MEDS: MIRTAZAPINE 15 MG TABLET (FP) PO SCH (21:04)
[2020-05-24] MEDS: INSULIN (LEVEMIR) 100 UNITS/ML UNITS SQ SCH (21:05)
[2020-05-25] MEDS: SODIUM BICARBONATE 650 MG TABLET PO SCH ×3 (06:03→21:32)
[2020-05-25] MEDS: INSULIN SLIDING SCALE (NOVOLOG) 1 VIAL SQ SCH ×4 (06:04→21:31)
[2020-05-25] MEDS: LEVOTHYROXINE NA 88 MCG TABLET (FP) PO SCH (06:04)
[2020-05-25 09:44] LABS: POTASSIUM 3.6 mmol/L (3.5-5.1)
[2020-05-25 09:49] LABS: BLOOD UREA NITROGEN 67.8 mg/dL (7-18); CALCIUM 7.3 mg/dL (8.5-10.1)
[2020-05-25 09:52] LABS: CREATININE 2.8 mg/dL (0.55-1.3)
[2020-05-25] MEDS: CALCIUM ACETATE 667 MG CAPSULE (FP) PO SCH ×3 (10:12→17:44)
[2020-05-25] MEDS: ASCORBIC ACID 500 MG TABLET (FP) PO SCH (10:12)
[2020-05-25] MEDS: CHOLECALCIFEROL (VIT D3) 1,000 UNIT (25 MCG) TABLET PO SCH (10:12)
[2020-05-25] MEDS: ZINC SULFATE 220 MG CAPSULE (FP) PO SCH (10:12)
[2020-05-25] MEDS: ASPIRIN 81 MG CHEWABLE TABLETS PO SCH (10:13)
[2020-05-25] MEDS: FAMOTIDINE 20 MG TABLET PO SCH (10:13)
[2020-05-25] MEDS: CARVEDILOL 3.125 MG TABLET (FP) PO SCH ×2 (10:13→21:32)
[2020-05-25] MEDS: DEXAMETHASONE 4 MG TABLET (FP) PO SCH (10:14)
[2020-05-25] MEDS ORDERED: SODIUM CHLORIDE 0.45% 1,000 ML IV SCH (16:15)
[2020-05-25] MEDS: INSULIN (LEVEMIR) 100 UNITS/ML UNITS SQ SCH (21:31)
[2020-05-25] MEDS: ATORVASTATIN CA 40 MG TABLET (FP) PO SCH (21:32)
[2020-05-25] MEDS: MIRTAZAPINE 15 MG TABLET (FP) PO SCH (21:33)
[2020-05-26] MEDS: INSULIN SLIDING SCALE (NOVOLOG) 1 VIAL SQ SCH ×4 (06:52→21:49)
[2020-05-26] MEDS: LEVOTHYROXINE NA 88 MCG TABLET (FP) PO SCH (06:52)
[2020-05-26] MEDS: CALCIUM ACETATE 667 MG CAPSULE (FP) PO SCH ×3 (08:04→17:31)
[2020-05-26 09:21] LABS: POTASSIUM 3.5 mmol/L (3.5-5.1)
[2020-05-26 09:22] LABS: CALCIUM 7.5 mg/dL (8.5-10.1)
[2020-05-26 09:23] LABS: ALBUMIN 2.1 g/dl (3.4-5.0); BLOOD UREA NITROGEN 58.3 mg/dL (7-18)
[2020-05-26 09:26] LABS: CREATININE 2.4 mg/dL (0.55-1.3)
[2020-05-26 09:28] LABS: BILIRUBIN,TOTAL 0.3 mg/dL (0.2-1); TOT PROT 4.5 g/dl (6.4-8.2)
[2020-05-26] MEDS: ZINC SULFATE 220 MG CAPSULE (FP) PO SCH (11:00)
[2020-05-26] MEDS: ASPIRIN 81 MG CHEWABLE TABLETS PO SCH (11:00)
[2020-05-26] MEDS: SODIUM BICARBONATE 650 MG TABLET PO SCH ×2 (11:00→21:57)
[2020-05-26] MEDS: FAMOTIDINE 20 MG TABLET PO SCH (11:00)
[2020-05-26] MEDS: CARVEDILOL 3.125 MG TABLET (FP) PO SCH ×2 (11:00→21:58)
[2020-05-26] MEDS: ASCORBIC ACID 500 MG TABLET (FP) PO SCH (11:00)
[2020-05-26] MEDS: CHOLECALCIFEROL (VIT D3) 1,000 UNIT (25 MCG) TABLET PO SCH (11:00)
[2020-05-26 17:22] VITALS: BMI 25.7
[2020-05-26] MEDS: INSULIN (LEVEMIR) 100 UNITS/ML UNITS SQ SCH (21:56)
[2020-05-26] MEDS: ATORVASTATIN CA 40 MG TABLET (FP) PO SCH (21:57)
[2020-05-26] MEDS: MIRTAZAPINE 15 MG TABLET (FP) PO SCH (21:58)
[2020-05-27] MEDS ORDERED: PT OWN MED DRAWER 7, Y5N ONE (06:37)
[2020-05-27] MEDS: LEVOTHYROXINE NA 88 MCG TABLET (FP) PO SCH (06:39)
[2020-05-27] MEDS: INSULIN SLIDING SCALE (NOVOLOG) 1 VIAL SQ SCH ×4 (06:43→22:12)
[2020-05-27] MEDS: CALCIUM ACETATE 667 MG CAPSULE (FP) PO SCH ×3 (08:35→17:39)
[2020-05-27] MEDS: SODIUM BICARBONATE 650 MG TABLET PO SCH ×2 (10:08→21:53)
[2020-05-27] MEDS: CARVEDILOL 3.125 MG TABLET (FP) PO SCH ×2 (10:09→21:54)
[2020-05-27] MEDS: ZINC SULFATE 220 MG CAPSULE (FP) PO SCH (10:09)
[2020-05-27] MEDS: ASCORBIC ACID 500 MG TABLET (FP) PO SCH (10:09)
[2020-05-27] MEDS: CHOLECALCIFEROL (VIT D3) 1,000 UNIT (25 MCG) TABLET PO SCH (10:09)
[2020-05-27] MEDS: ASPIRIN 81 MG CHEWABLE TABLETS PO SCH (10:09)
[2020-05-27] MEDS: FAMOTIDINE 20 MG TABLET PO SCH (10:09)
[2020-05-27] MEDS: DEXAMETHASONE 4 MG TABLET (FP) PO SCH (10:22)
[2020-05-27 12:20] LABS: POTASSIUM 3.1 mmol/L (3.5-5.1)
[2020-05-27 12:25] LABS: BLOOD UREA NITROGEN 50.1 mg/dL (7-18); CALCIUM 7.6 mg/dL (8.5-10.1)
[2020-05-27 12:28] LABS: CREATININE 2.1 mg/dL (0.55-1.3)
[2020-05-27] MEDS ORDERED: POTASSIUM CHLORIDE TABS 20 MEQ TABLET.ER (FP) PO ONE (12:39)
[2020-05-27] MEDS: KCL 10 MEQ IVPB 10 MEQ/100 ML INFUS.BAG IVPB SCH ×2 (13:10→14:38)
[2020-05-27] MEDS: MIRTAZAPINE 15 MG TABLET (FP) PO SCH (21:52)
[2020-05-27] MEDS: ATORVASTATIN CA 40 MG TABLET (FP) PO SCH (21:52)
[2020-05-27] MEDS: INSULIN (LEVEMIR) 100 UNITS/ML UNITS SQ SCH (22:31)
[2020-05-28] MEDS ORDERED: PT OWN MED DRAWER 7, Y5N ONE (06:30)
[2020-05-28] MEDS: LEVOTHYROXINE NA 88 MCG TABLET (FP) PO SCH (06:33)
[2020-05-28] MEDS: INSULIN SLIDING SCALE (NOVOLOG) 1 VIAL SQ SCH ×2 (06:36→12:11)
[2020-05-28] MEDS: CALCIUM ACETATE 667 MG CAPSULE (FP) PO SCH ×2 (08:49→12:12)
[2020-05-28] MEDS: FAMOTIDINE 20 MG TABLET PO SCH (10:23)
[2020-05-28] MEDS: SODIUM BICARBONATE 650 MG TABLET PO SCH (10:23)
[2020-05-28] MEDS: CARVEDILOL 3.125 MG TABLET (FP) PO SCH (10:25)
[2020-05-28] MEDS: ZINC SULFATE 220 MG CAPSULE (FP) PO SCH (10:25)
[2020-05-28] MEDS: ASPIRIN 81 MG CHEWABLE TABLETS PO SCH (10:25)
[2020-05-28] MEDS: CHOLECALCIFEROL (VIT D3) 1,000 UNIT (25 MCG) TABLET PO SCH (10:26)
[2020-05-28] MEDS: ASCORBIC ACID 500 MG TABLET (FP) PO SCH (10:26)
[2020-05-28 11:52] LABS: BASO % 0.2 % (0-2.0); EOS % 1.7 % (0-4.5); HEMATOCRIT 29.2 % (32.4-45.2); HEMOGLOBIN 10.1 GM/dL (10.7-15.3); LYMPH % 7.4 % (8-40); MCH 30.4 pg (25.7-33.7); MCHC 34.5 g/dl (32.0-36.0); MEAN CELL VOLUME 88.1 fl (80-96); MEAN PLT VOLUME 7.8 fl (7.5-11.1); MONO % 4.7 % (3.8-10.2); PLATELET COUNT 154 K/MM3 (134-434); RBC 3.32 M/mm3 (3.60-5.2); RDW 13.8 % (11.6-15.6); WHITE BLOOD COUNT 10.7 K/mm3 (4.0-10.0)
[2020-05-28 12:17] LABS: POTASSIUM 3.6 mmol/L (3.5-5.1)
[2020-05-28 12:19] LABS: ALBUMIN 2.2 g/dl (3.4-5.0); BLOOD UREA NITROGEN 41.9 mg/dL (7-18); CALCIUM 7.5 mg/dL (8.5-10.1)
[2020-05-28 12:23] LABS: CREATININE 2.1 mg/dL (0.55-1.3)
[2020-05-28 12:29] LABS: BILIRUBIN,TOTAL 0.5 mg/dL (0.2-1)
[2020-05-28 12:30] LABS: MAGNESIUM 1.3 mg/dL (1.8-2.4)
[2020-05-28 14:40] VITALS: BP 168/75; PULSE 69; TEMP 98.4
== END 2020-05-28 17:52 | disposition home or self-care (01) | DRG 177 ==
LOC: JER 18:06 → JERBED 21:10 → J5WEST-2 05-16 01:07 → J6S 05-25 13:21
PROVIDERS: ADMIT Internal Medicine; ATTEND Internal Medicine
DX: U07.1 COVID-19 (principal); J12.82 Pneumonia due to coronavirus disease 2019; J96.01 Acute respiratory failure with hypoxia; I50.23 Acute on chronic systolic (congestive) heart failure; N17.9 Acute kidney failure, unspecified; E87.1 Hypo-osmolality and hyponatremia; A08.39 Other viral enteritis; E87.2 Acidosis; E03.9 Hypothyroidism, unspecified; I11.0 Hypertensive heart disease with heart failure; I25.10 Atherosclerotic heart disease of native coronary artery without angina pectoris; M81.0 Age-related osteoporosis without current pathological fracture; R63.0 Anorexia; Z68.25 Body mass index [BMI] 25.0-25.9, adult; E11.9 Type 2 diabetes mellitus without complications; I44.7 Left bundle-branch block, unspecified; E11.65 Type 2 diabetes mellitus with hyperglycemia; E83.39 Other disorders of phosphorus metabolism; E86.0 Dehydration; E83.42 Hypomagnesemia; D69.6 Thrombocytopenia, unspecified; T50.8X5A Adverse effect of diagnostic agents, initial encounter; Z95.1 Presence of aortocoronary bypass graft; Z91.14 Patient's other noncompliance with medication regimen
CPT/HCPCS: 36415; 71045-TC-FY; 71275-TC; 76775-TC; 76856-TC; 80048; 80053; 81003; 82248; 82436; 82550; 82553; 82565; 82728; 82962; 83036; 83615; 83735; 83880; 83930; 83935; 84100; 84133; 84300; 84436; 84443; 84484; 85025; 85027; 85379; 85730; 86140; 86769; 86850; 86900; 86901; 87086; 93005; 93010; 97116-GP; 97161-GP; 99285-25; C9803; J1100; J1644; Q0162; Q9967; U0003

== ENCOUNTER 2020-07-16 07:28 | Emergency (ER) | payer OTHER ==
[2020-07-16 08:09] VITALS: TEMP 98.2; BMI 23.9
[2020-07-16 08:58] LABS: BASO % 0.3 % (0-2.0); EOS % 2.3 % (0-4.5); HEMATOCRIT 35.9 % (32.4-45.2); LYMPH % 28.4 % (8-40); MCH 30.8 pg (25.7-33.7); MCHC 33.4 g/dl (32.0-36.0); MEAN CELL VOLUME 92.2 fl (80-96); MEAN PLT VOLUME 9.5 fl (7.5-11.1); MONO % 6.8 % (3.8-10.2); NEUT % 62.2 % (42.8-82.8); PLATELET COUNT 163 K/MM3 (134-434); RBC 3.89 M/mm3 (3.60-5.2); WHITE BLOOD COUNT 6.1 K/mm3 (4.0-10.0)
[2020-07-16 09:04] LABS: EPI CELLS 8 /uL (0-25.1); HYALINE CASTS 1 /uL (0-3.1); URINE APPEARANCE CLEAR; URINE BACTERIA 94 /uL (0-1359); URINE BILIRUBIN NEGATIVE (NEGATIVE); URINE COLOR YELLOW; URINE GLUCOSE (UA) NEGATIVE (NEGATIVE); URINE KETONE NEGATIVE (NEGATIVE); URINE LEUK ESTERASE TRACE (NEGATIVE); URINE NITRITE NEGATIVE (NEGATIVE); URINE PROTEIN NEGATIVE (NEGATIVE); URINE RBC 3 /uL (0-23.9); URINE UROBILINOGEN 0.2 mg/dL (0.2-1.0); URINE WBC 20 /uL (0-25.8)
[2020-07-16 09:18] LABS: CALCIUM 8.6 mg/dL (8.5-10.1)
[2020-07-16 09:19] LABS: ALBUMIN 3.5 g/dl (3.4-5.0); MAGNESIUM 1.9 mg/dL (1.8-2.4)
[2020-07-16 09:22] LABS: CREATININE 0.9 mg/dL (0.55-1.3); PHOSPHOROUS 3.8 mg/dL (2.5-4.9)
[2020-07-16 09:23] LABS: BILIRUBIN,TOTAL 0.5 mg/dL (0.2-1)
[2020-07-16 09:24] LABS: TOT PROT 6.7 g/dl (6.4-8.2)
[2020-07-16 11:17] VITALS: BP 168/84; PULSE 78
== END 2020-07-16 11:18 | disposition home or self-care (01) ==
LOC: JER 07:28
DX: E16.2 Hypoglycemia, unspecified (principal)
CPT/HCPCS: 36415; 71045-TC-FY; 80053; 81003; 82962; 83735; 84100; 84484; 85025; 93005; 93010; 99284-25